=== PATIENT | male | born 1955 | race Two or more races ===

== ENCOUNTER 2021-01-02 10:59 | Inpatient (IN) | payer MEDICARE, MEDICAID ==
[~2021-01-02] VITALS: Ht 172.7 cm; Wt 122.0 kg
--- NOTE | 2021-01-02 11:00 | NUR ---
CAME TO ER COMPLAINTS OF RIGHT LEG SWELLING AND PAIN FROM USP
[2021-01-02] MEDS ORDERED: Morphine Sulfate 4mg/ml Inj (IV USE ONLY) IVP ONE (12:00)
[2021-01-02] MEDS ORDERED: Piperacillin/Tazobactam 3.375 GM in NS 110 ML IVPB ONE (12:00)
[2021-01-02 12:06] VITALS: BP 102/47
[2021-01-02 12:20] LABS: ANION GAP 4 mmol/L (5-15); BLOOD UREA NITROGEN 17 mg/dL (7-18); CALCIUM 9.1 MG/DL (8.5-10.1); CARBON DIOXIDE 35 MMOL/L (21-32); CHLORIDE 100 MMOL/L (98-107); POTASSIUM 4.4 MMOL/L (3.5-5.1); SODIUM 139 MMOL/L (136-145)
[2021-01-02 12:25] LABS: ALANINE AMINOTRANSFERASE 22 U/L (12-78); ALBUMIN/GLOBULIN RATIO 0.7 (1.0-2.7); ALKALINE PHOSPHATASE 79 U/L (46-116); ASPARTATE AMINO TRANSFERASE 17 U/L (15-37); BILIRUBIN,TOTAL 0.2 MG/DL (0.2-1.0)
[2021-01-02 12:30] LABS: BASOPHILS % (AUTO) 0.7 % (0.0-2.0); EOSINOPHILS % (AUTO) 1.3 % (0.0-3.0); HEMATOCRIT 39.2 % (42.0-52.0); HEMOGLOBIN 12.5 G/DL (14.2-18.0); LYMPHOCYTES % (AUTO) 20.8 % (20.0-45.0); MEAN CORPUSCULAR VOLUME 84 FL (80-99); MONOCYTES % (AUTO) 11.8 % (1.0-10.0); NEUTROPHILS % (AUTO) 65.5 % (45.0-75.0); PLATELET COUNT 299 K/UL (150-450); RED BLOOD COUNT 4.67 M/UL (4.70-6.10); RED CELL DISTRIBUTION WIDTH 14.7 % (11.6-14.8); WHITE BLOOD COUNT 8.3 K/UL (4.8-10.8)
[2021-01-02] MEDS ORDERED: HYDROmorphone 1mg/ml Carpuject IVP ONE ×2 (12:45→15:00)
--- NOTE | 2021-01-02 12:50 | NUR ---
ADMIT TO HOSPITAL FOR OBSERVATION
[2021-01-02 13:00] VITALS: BP 113/68
[2021-01-02] MEDS ORDERED: Sodium Chloride 3,400 ML IVLG ONE (13:15)
[2021-01-02] MEDS ORDERED: DIOVAN HCT 80MG1 TAB ORAL (13:26)
[2021-01-02] MEDS ORDERED: ACETAMINOPHEN325 M1 ORAL (13:26)
[2021-01-02] MEDS ORDERED: VITAMIN D325 MC1 PO (13:26)
[2021-01-02] MEDS ORDERED: ZYPREXA10 MG ORAL (13:26)
[2021-01-02] MEDS ORDERED: XARELTO10 MG ORAL (13:26)
[2021-01-02] MEDS ORDERED: NORVASC5 MG ORAL (13:26)
--- NOTE | 2021-01-02 13:53 | Consultation ---
History of Present Illness General Date patient seen: Jan 02, 2021 Reason for Hospitalization: General Complaint Present Illness HPI This is a 65-year-old male multimedical comorbidities with history of lower extremity edema cellulitis wounds presented to [facility] with b ilateral lower extremity cellulitis worsening. States he noticed some redness edema recently that has been worsening specially on the right greater than left. On evaluation identified to have open wounds erythema cellulitis no abscess. Surgery called to eval and assist with care patient seen emergency room and chart reviewed patient care plan initiated. Allergies: Coded Allergies: Dust (Verified Allergy, Severe, Severe coughing, 01/02/21) GRASS POLLEN (Verified Allergy, Severe, Severe coughing, 01/02/21) GARCIA (Verified Allergy, Intermediate, Coughing, 01/02/21) Anything garden related TREE AND SHRUB POLLEN (Verified Allergy, Intermediate, Coughing, 01/02/21) Severe coughing COVID-19 Screening Contact w/high risk pt: No Experienced COVID-19 symptoms?: No Medication History Scheduled Amlodipine Besylate (Norvasc), 5 MG ORAL DAILY, (Reported) Cholecalciferol (Vitamin D3) (Vitamin D3*), 5,000 UNITS PO DAILY, (Reported) Olanzapine* (Zyprexa*), 10 MG ORAL DAILY, (Reported) Rivaroxaban (Xarelto*), 20 MG ORAL DAILY, (Reported) Valsartan (Diovan), 1 TAB ORAL DAILY, (Reported) Scheduled PRN Acetaminophen* (Acetaminophen 325MG Tablet*), 650 MG ORAL Q4H PRN for Pain Scale (3-5), (Reported) Patient History Limited by: medical condition History Provided By: Medical Record, PMD Healthcare decision maker Resuscitation status Advanced Directive on File Review of Systems Review of Symptoms -O-o-f-e-r-a-l- -R-O-S-:- -n-o- -b-r-s-g--h-t- -l-o-s-s- -o-r- -f-e-v-e-r- -J-t-n-m-z-w-h-c-v-i-c-a-l- -R-O-S-:- -n-o- -h-p-y-x-y-n-s-i-o-n- -o-r- -m-o-o-d- -s-s-r-n-g-e-s-,- -n-o- -h-l-l-o-r-y- -l-o-s-s- -Y-d-t-t-h--a-l-m-i-c- -R-O-S-:- -n-o- -h-f-w-u-a-l- -i-t-w-n-g-e-s- -o-r- -e-y-e- -q-t-k-n-u-w-t-i-o-n- -E-N-T- -R-O-S-:- -n-o- -n-a-s-a-l- -o-p-b-o-v-w-t-i-o-n-,- -g-p-b-r-i-n-g- -l-o-s--s-,- -x-k-k-u-d-c-e-s-s- -H-g-n-e-r-g-y- -a-n-d- -O-z-p-o-l-l-l-o-g-y- -R-O-S-:- -n-o- -h-r-v-e-r-g-i-c- -x-m-l-p-t-o-m-s- -o-r- -t-z-x-j-l-t-r-i-a- -I-o-o-i-m-e-v-v-s-i-c-a--l- -a-n-d- -E-m-g-m-n-k-t-i-c- -R-O-S-:- -n-o- -v-l-z-l-l-e-n- -m-z-w-n-d-s-,- -u-i-f-s-u-a-l- -o-a-e-e-d-i-n-g- -o-r- -y-s-i-i-s-i-n-g- -H-l-g-z-o-t-i-n-e- -R-O-S-:- -n-o- -p--k-r-j-u-r-i-a-,- -a-l-v-w-b-c-p-s-i-a-,- -k-q-i-g-h-t- -k-y-c-n-g-e-s-,- -l-y-h-r-h-v-a-t-u-r-e- -u-a-r-a-t-g-r-a-n-c-e- -W-k-x-d-s-u-a-t-o-r-y- -R-O-S-:- -n-o- -c-o-u-g-h-,- -u-p-a-s-d-z-e-s-s- -o-f- -n-o-c-a-t-h-,- -o-r- -d-t-b-e-z-i-n-g- -V-w-c-v-b-b-u-x-e-c-u-l-a-r- -R-O-S-:- -n-o- -c-h-e-s-t- -p-a-i-n- -o-r- -f-i-w-p-n-e-a- -o-n- -p-x-g-r-t-i-o-n- -E-v-x-e-m-z-v-h-c-e--v-v-n-n-a-l- -R-O-S-:- -b-r-y-i-e-s- -o-i-v-k-o-z-n-a-l- -p-a-i-n-,- -y-y-p-g-h-t- -r-e-d- -b-l-o-o-d- -i-n- -s-t-o-o-l-.- -U-t-b-w-z-h-r-w-y-d-i-l-t-a-l- -R-O-S-:- -n-o- -m-y--j-q-x-i-a-s- -o-r- -e-a-i-c-b-m-l-g-i-a-s- -A-k-k-n-t-o-m-i-j-c-a-l- -R-O-S-:- -n-o- -T-I-A- -o-r- -x-t-d-o-k-e- -e-x-d-p-t-o-m-s- -E-u-f-l-r-b-o-u-d-g-i-c-a-l- -R-O-S-:- -n-o- -n-e-w- -o-r- -q-p-h-n-g-i-n-g- -s-k-i-n- -l-w-i-i-o-n-s-,- -b-v-r-h-e-s- -o-r- -l-r-z-r-i-t-i-s- limited Physical Exam Physical Exam General appearance: alert, cooperative, no distress, appears stated age Head: Normocephalic, without obvious abnormality, atraumatic Eyes: conjunctivae/corneas clear. PERRL, EOM's intact. Fundi benign Throat: Lips, mucosa, and tongue normal. Teeth and gums normal Neck: supple, symmetrical, trachea midline, no adenopathy, thyroid: not enlarged, symmetric, no tenderness/mass/nodules, no carotid bruit and no JVD Lungs: clear to auscultation bilaterally Heart: regular rate and rhythm, S1, S2 normal, no murmur, click, rub or gallop Abdomen: soft, non-tender. Bowel sounds normal. No masses, no organomegaly Extremities: extremities+ edema Pulses: 2+ and symmetric Skin: Skin color, texture, turgor normal. No rashes or lesions Neurologic: Grossly normal Last 24 Hour Vital Signs Date Time Temp Pulse Resp B/P (MAP) Pulse Ox O2 Delivery O2 Flow Rate FiO2 01/02/21 13:00 62 18 113/68 100 Room Air 01/02/21 12:54 98.2 01/02/21 12:32 98.2 01/02/21 12:06 62 18 Nasal Cannula 3.0 99 01/02/21 12:06 62 18 102/47 100 Nasal Cannula 3.0 01/02/21 11:14 98.2 72 18 130/80 (97) 99 Room Air Laboratory Tests Test 01/02/21 11:50 White Blood Count 8.3 K/UL (4.8-10.8) Red Blood Count 4.67 M/UL (4.70-6.10) L Hemoglobin 12.5 G/DL (14.2-18.0) L Hematocrit 39.2 % (42.0-52.0) L Mean Corpuscular Volume 84 FL (80-99) Mean Corpuscular Hemoglobin 26.8 PG (27.0-31.0) L Mean Corpuscular Hemoglobin Concent 31.8 G/DL (32.0-36.0) L Red Cell Distribution Width 14.7 % (11.6-14.8) Platelet Count 299 K/UL (150-450) Mean Platelet Volume 6.1 FL (6.5-10.1) L Neutrophils (%) (Auto) 65.5 % (45.0-75.0) Lymphocytes (%) (Auto) 20.8 % (20.0-45.0) Monocytes (%) (Auto) 11.8 % (1.0-10.0) H Eosinophils (%) (Auto) 1.3 % (0.0-3.0) Basophils (%) (Auto) 0.7 % (0.0-2.0) Sodium Level 139 MMOL/L (136-145) Potassium Level 4.4 MMOL/L (3.5-5.1) Chloride Level 100 MMOL/L (98-107) Carbon Dioxide Level 35 MMOL/L (21-32) H Anion Gap 4 mmol/L (5-15) L Blood Urea Nitrogen 17 mg/dL (7-18) Creatinine 1.0 MG/DL (0.55-1.30) Estimat Glomerular Filtration Rate > 60 mL/min (>60) Glucose Level 90 MG/DL (74-106) Lactic Acid Level 0.90 mmol/L (0.4-2.0) Calcium Level 9.1 MG/DL (8.5-10.1) Total Bilirubin 0.2 MG/DL (0.2-1.0) Aspartate Amino Transf (AST/SGOT) 17 U/L (15-37) Alanine Aminotransferase (ALT/SGPT) 22 U/L (12-78) Alkaline Phosphatase 79 U/L (46-116) Total Protein 7.3 G/DL (6.4-8.2) Albumin 3.0 G/DL (3.4-5.0) L Globulin 4.3 g/dL Albumin/Globulin Ratio 0.7 (1.0-2.7) L Height (Feet): 5 Height (Inches): 8.00 Weight (Pounds): 250 Medications Current Medications Medications (Trade) Dose Ordered Sig/Graciela Route PRN Reason Start Time Stop Time Status Last Admin Dose Admin Sodium Chloride 1,000 ml @ 999 mls/hr Q1H1M ONCE IV 01/02/21 13:45 01/02/21 14:45 Assessment/Plan Problem List: (1) Cellulitis of right lower extremity Assessment & Plan: Pt presented on admission with Edema, Multiple Ulcerations R lower extremity. R Lower extremity is warm, erythematous with presence of Haemosiderin. Pt stated he has Hx. of recurrent Leg ulcerations. Wound zia R Tibia(L)0.8cm x (W)4.5cm. Fibrinous slough at base of wound. Borders are irregular and macerated. Weeping seropurulent exudate . Mild odor noted. Two wounds lateral RLE (L)5cm x (W)7.3cm. (Proximal)Superficial wound with 50% fibrinous slough,50% kenna. Borders are irregular and macerated. Exuding seropurulent exudate. Mild odor noted. (Distally) Lateral/posterior R Tibia (L)6.5cm x (W)7.4cm. Superficial wound with 90% fibrinous slough,10% kenna.Irregular borders that are macerated. Exuding moderate amt malodorous seropurulent exudate. Posterior R Tibia(L)1.2cm x (W)3.6cm. Superficial wound with 50% fibrinous slough,50% kenna. Irregular and macerated borders.Small amt seropurulent exudate. Mild odor noted. Small black nodule noted to posterior upper R thigh. No erythema or changes in skin temp at site. Pt stated he has had nodule for many years. Denied pain at site. Haemosiderin noted to LLE . No edema or ulcerations noted. Both heels are blanchable and firm. Tx.plan: Cleanse wounds R lower extremity with Saline. Apply Silvasorb Gel to each wound. Cover wounds with Maxsorb Extra (calcium Alginate). Cover wounds with ABD Pads. Wrap with Kerlix From Base of Toes to Below Knee. Change Daily and prn. Elevate leg with Pillow. ICD Codes: L03.115 - Cellulitis of right lower limb SNOMED: [id number] NegroPapi Jan 02, 2021 13:53
--- NOTE | 2021-01-02 14:32 | Emergency Room Report ---
History of Present Illness General Chief Complaint: General Complaint Source: Patient, Medical Record, PMD Present Illness HPI 65-year-old male presents for evaluation. Brought in by EMS from custodial facility. Has cellulitis to both legs however states the left leg is healing however the right leg is getting worse over the last several weeks. Pain is throbbing, 10 out of 10, nonradiating. Denies fevers or chills. Denies chest pain or shortness of breath. No other aggravating relieving factors. 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 Patient History Past Medical History: HTN, psych hx Past Surgical History: none Pertinent Family History: none Social History: Denies: smoking, alcohol use, drug use Immunizations: UTD Reviewed Nursing Documentation: PMH: Agreed; PSxH: Agreed Nursing Documentation-PMH Hx Hypertension: Yes History Of Psychiatric Problem: Yes - schizophrenia,depression Review of Systems All Other Systems: negative except mentioned in HPI Physical Exam Vital Signs Date Time Temp Pulse Resp B/P (MAP) Pulse Ox O2 Delivery O2 Flow Rate FiO2 01/02/21 11:14 98.2 72 18 130/80 (97) 99 Room Air 01/02/21 12:06 3.0 01/02/21 12:06 99 Sp02 EP Interpretation: reviewed, normal General Appearance: no apparent distress, alert, GCS 15, non-toxic, obese Head: normocephalic, atraumatic Eyes: bilateral eye normal inspection, bilateral eye PERRL ENT: hearing grossly normal, normal pharynx, no angioedema, normal voice Neck: full range of motion, supple/symm/no masses Respiratory: chest non-tender, lungs clear, normal breath sounds, speaking full sentences Cardiovascular #1: regular rate, rhythm, no edema Cardiovascular #2: 2+ carotid (R), 2+ carotid (L), 2+ radial (R), 2+ radial (L), 2+ dorsalis pedis (R), 2+ dorsalis pedis (L) Gastrointestinal: normal bowel sounds, non tender, soft, non-distended, no guarding, no rebound Rectal: deferred Genitourinary: normal inspection, no CVA tenderness Musculoskeletal: back normal, normal range of motion, gait/station normal, swelling Neurologic: alert, motor strength/tone normal, oriented x3, sensory intact, responsive, speech normal Psychiatric: judgement/insight normal, memory normal, mood/affect normal, no suicidal/homicidal ideation Reflexes: 3+ bicep (R), 3+ bicep (L), 3+ tricep (R), 3+ tricep (L), 3+ knee (R), 3+ knee (L) Skin: other - Diffuse erythema and induration with ulcerations noted to the right lower extremity. Healing cellulitis to the left lower extremity Lymphatic: no adenopathy Medical Decision Making Diagnostic Impression: Primary Impression: Cellulitis of right lower extremity ER Course Hospital Course 65-year-old male presents to ED with redness, swelling to RLE Differential diagnoses include: Cellulitis, abscess, rash. Clinical course Patient placed on stretcher. After initial history and physical I ordered labs, blood Cx, UA, IVFs, pain meds labs reviewed - no leukocytosis, Hb/Hct stable, no electrolyte abnormalities. lactic ok CXR no acute process antibiotics given. Even IV fluids. Wound culture obtained. Case discussed with Dr Corral and he agreed to accept the patient to his service for further care and support Diagnosis - cellulitis of right lower extremity Patient admitted to floor in serious condition Laboratory Tests Test 01/02/21 11:50 White Blood Count 8.3 K/UL (4.8-10.8) Red Blood Count 4.67 M/UL (4.70-6.10) L Hemoglobin 12.5 G/DL (14.2-18.0) L Hematocrit 39.2 % (42.0-52.0) L Mean Corpuscular Volume 84 FL (80-99) Mean Corpuscular Hemoglobin 26.8 PG (27.0-31.0) L Mean Corpuscular Hemoglobin Concent 31.8 G/DL (32.0-36.0) L Red Cell Distribution Width 14.7 % (11.6-14.8) Platelet Count 299 K/UL (150-450) Mean Platelet Volume 6.1 FL (6.5-10.1) L Neutrophils (%) (Auto) 65.5 % (45.0-75.0) Lymphocytes (%) (Auto) 20.8 % (20.0-45.0) Monocytes (%) (Auto) 11.8 % (1.0-10.0) H Eosinophils (%) (Auto) 1.3 % (0.0-3.0) Basophils (%) (Auto) 0.7 % (0.0-2.0) Sodium Level 139 MMOL/L (136-145) Potassium Level 4.4 MMOL/L (3.5-5.1) Chloride Level 100 MMOL/L (98-107) Carbon Dioxide Level 35 MMOL/L (21-32) H Anion Gap 4 mmol/L (5-15) L Blood Urea Nitrogen 17 mg/dL (7-18) Creatinine 1.0 MG/DL (0.55-1.30) Estimat Glomerular Filtration Rate > 60 mL/min (>60) Glucose Level 90 MG/DL (74-106) Lactic Acid Level 0.90 mmol/L (0.4-2.0) Calcium Level 9.1 MG/DL (8.5-10.1) Total Bilirubin 0.2 MG/DL (0.2-1.0) Aspartate Amino Transf (AST/SGOT) 17 U/L (15-37) Alanine Aminotransferase (ALT/SGPT) 22 U/L (12-78) Alkaline Phosphatase 79 U/L (46-116) Total Protein 7.3 G/DL (6.4-8.2) Albumin 3.0 G/DL (3.4-5.0) L Globulin 4.3 g/dL Albumin/Globulin Ratio 0.7 (1.0-2.7) L Chest X-Ray Diagnostic Results Chest X-Ray Diagnostic Results : Chest X-Ray Ordered: Yes # of Views/Limited/Complete: 1 View Indication: Other EP Interpretation: Yes Interpretation: no consolidation, no effusion, no pneumothorax, no acute cardiopulmonary disease Impression: No acute disease Electronically Signed by: Electronically signed by Juan Francisco Swift MD Last Vital Signs Date Time Temp Pulse Resp B/P (MAP) Pulse Ox O2 Delivery O2 Flow Rate FiO2 01/02/21 13:00 62 18 113/68 100 Room Air 01/02/21 12:54 98.2 01/02/21 12:06 3.0 99 Status: improved Disposition: ADMITTED INPATIENT Condition: Serious Referrals: Juan Carlos Corral MD (PCP) Juan Francisco Swift MD Jan 02, 2021 14:32
[2021-01-02 15:49] VITALS: BP 114/69
--- NOTE | 2021-01-02 15:50 | NUR ---
REPORT GIVEN TO RN PATIENT IS TO BE TRANSFERD TO ROOM 412-[address] [facility]
--- NOTE | 2021-01-02 15:51 | NUR ---
NURSE NOTES: Report received from YVETTE Vargas in the ED via telephone, awaiting for patient arrival on 4E 412-1.
[2021-01-02 16:00] VITALS: BP 145/63
--- NOTE | 2021-01-02 16:10 | NUR ---
NURSE NOTES: Patient brought up to the floor.
--- NOTE | 2021-01-02 16:15 | NUR ---
NURSE NOTES: Called and left a voicemail for Dr. Nieves on answering service for admission orders.
--- NOTE | 2021-01-02 17:00 | NUR ---
NURSE NOTES: Dr. Nieves did not finish giving orders via telephone. Called back Dr. Nieves and no answer.
--- NOTE | 2021-01-02 18:03 | NUR ---
NURSE NOTES:WOUND CARE NOTES:Pt presented on admission with Edema, Multiple Ulcerations R lower extremity. R Lower extremity is warm, erythematous with presence of Haemosiderin. Pt stated he has Hx. of recurrent Leg ulcerations. Wound zia R Tibia(L)0.8cm x (W)4.5cm. Fibrinous slough at base of wound. Borders are irregular and macerated. Weeping seropurulent exudate . Mild odor noted. Two wounds lateral RLE (L)5cm x (W)7.3cm. (Proximal)Superficial wound with 50% fibrinous slough,50% kenna. Borders are irregular and macerated. Exuding seropurulent exudate. Mild odor noted. (Distally) Lateral/posterior R Tibia (L)6.5cm x (W)7.4cm. Superficial wound with 90% fibrinous slough,10% kenna.Irregular borders that are macerated. Exuding moderate amt malodorous seropurulent exudate. Posterior R Tibia(L)1.2cm x (W)3.6cm. Superficial wound with 50% fibrinous slough,50% kenna. Irregular and macerated borders.Small amt seropurulent exudate. Mild odor noted. Small black nodule noted to posterior upper R thigh. No erythema or changes in skin temp at site. Pt stated he has had nodule for many years. Denied pain at site. Haemosiderin noted to LLE . No edema or ulcerations noted. Both heels are blanchable and firm. Tx.plan: Cleanse wounds R lower extremity with Saline. Apply Silvasorb Gel to each wound. Cover wounds with Maxsorb Extra (calcium Alginate). Cover wounds with ABD Pads. Wrap with Kerlix From Base of Toes to Below Knee. Change Daily and prn. Elevate leg with Pillow.
--- NOTE | 2021-01-02 18:14 | NUR ---
NURSE NOTES: Called Dr. Nieves for orders but no answer.
--- NOTE | 2021-01-02 18:26 | Diagnostic Imaging Report ---
Indication: Shortness of breath Technique: One view of the chest Comparison: none Findings: Lungs and pleural spaces are clear. Heart size is normal. Impression: No acute process
--- NOTE | 2021-01-02 19:00 | NUR ---
NURSE HAND-OFF: Important Events on Shift: full code, stable condition, admission orders need to be continued Patient Status: full code, no acute distress noted, on nasal cannula, v/s WNL Diet: regular Pending Orders: [] Pending Results/Labs:[] Pending MD notification:[] Latest Vital Signs: Temperature 97.3 , Pulse 65 , B/P 145 /63 , Respiratory Rate 19 , O2 SAT 95 , Room Air, O2 Flow Rate 2.0 . Vital Sign Comment: [] Latest Liu Fall Score: 45 Fall Risk: High Risk Safety Measures: Call light Within Reach, Bed Alarm Zone 2, Side Rails Side Rails x2, Bed position Low and Locked. Fall Precautions: Yellow Socks Yellow Gown Door Sign Patient Fall Education Report given to Abram Ladd RN made aware of need to complete admission orders..
--- NOTE | 2021-01-02 19:15 | NUR ---
NURSE NOTES: received pt and report from YVETTE Morgan. pt alert and oriented x 4 with no acute s/s of distress and no co pain at the moment. IV site clean dry and intact. Dressing on right foot clean dry and intact. Plan of care discussed.
[2021-01-02 20:00] VITALS: BP 119/65
[2021-01-02] MEDS: HYDROmorphone 1mg/ml Carpuject IVP SCH (21:59)
[2021-01-03] VITALS (7 sets, daily range): BP systolic 136–170; BP diastolic 58–80
--- NOTE | 2021-01-03 00:10 | NUR ---
NURSE NOTES: vital signs stable at this time, no acute s/s of distress observed. no co pain currently. Pt is asleep. no co SOB or difficulty breathing.
--- NOTE | 2021-01-03 01:59 | History and Physical Report ---
DATE OF ADMISSION: 01/02/2021 This is one of several admissions to [facility] of this 65-year-old patient, this time for right lower lobe cellulitis. HISTORY OF PRESENT ILLNESS: Patient is a resident of an extended care facility where he has been in stable condition for the last several months. He is known to have several chronic medical syndromes, but has been stable on his current medications. The right lower extremity for the last year has been for multiple treatment. His erythematous dermatitis is intermittently painful and swollen due to venous and capillary leak. More than 6 months ago, he was admitted to [facility] for similar reason for treatment of cellulitis. However, his condition deteriorated in the last several days. He was transferred to [facility] ER and was admitted. PAST MEDICAL HISTORY: Denies any surgical antecedent. Medically, patient has multiple chronic syndromes. He has morbid obesity with weight that was on admission to the [facility] more than 300 pounds. He has high blood pressure for the last 5 years. He has hyperlipidemia for the last 5 years. for the last 5 years. He has chronic psychosis for more than 20 years. He has mood disorder for which he was admitted for suicide attempt. He has severe osteoarthritis of the right knee and the left hip. It was determined long time ago that he needed total joint replacement however because of his weight, surgery was delayed. ALLERGIES: Pollen. MEDICATIONS: Patient is on Xarelto 20 mg daily, olanzapine 10 mg daily, amlodipine 5 mg daily, MS Contin 50 mg t.i.d. He was on vitamin D 5000 daily. He was on atorvastatin 10 mg daily, Protonix 40 mg daily. FAMILY HISTORY: Noncontributory. SOCIAL HISTORY: He is single. He was born in [place]. Has been on SSI for many years. 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 HABITS: Patient smoked 1 pack a day for more than 20 years; however, he discontinued 20 years ago. He denies drinking and denies use of illicit drugs. REVIEW OF SYSTEMS: CARDIOVASCULAR: Patient denies any chest pain, shortness of breath, palpitations, or dizziness. PULMONARY: Patient denied any cough, wheezing, or expectoration. GASTROINTESTINAL: His appetite is moderate. His weight is stable. He has no dysphagia or dyspepsia. No bowel movement disorder. GENITOURINARY: Patient denies any dysuria, frequency, or incontinence. He does have nocturia of 1 to 2. JOINTS: Patient denies any swelling, stiffness, cold extremities, photosensitivity, dry eyes, or alopecia. However, he has severe pain in the left hip and his right knee in which cartilage cannot be visualized despite chest x-ray or CT scan. PHYSICAL EXAMINATION: VITAL SIGNS: Blood pressure 145/78, his pulse is 62, respirations are 18, temperature 98.6. HEENT: Eyes were normal. Pupils were round, equal, and reactive to light. Sclerae were white. Conjunctivae were pink. Extraocular movements were normal. Temporal arteries were palpable bilaterally. There was no bilateral temporal wasting. Visual payan to confrontation were normal and neglect sign was negative. ENT, mucous membranes were not dehydrated. Auditory canals were clear and tympanic membranes could not be visualized. Nasal cavity was not congested. Nasal septum was intact. Soft palate was free of ulcerations. Pharynx was clear from exudate or tonsillar hypertrophy. Uvula doris to phonation. Tongue was moist, midline, and normally papillated. NECK: Supple. There was no goiter. No mass. No lymphadenopathy. There was no JVD. No bruit. Carotid upstroke was 2+. LUNGS: Clear. HEART: PMI was in fourth left intercostal space midclavicular line. There was normal S1 and normal S2. There was no murmur. No arrhythmia. No S3. No S4. No pericardial rub. ABDOMEN: Soft, nontender without organomegaly. There were no masses palpable. Normal bowel sounds without bruit. There was no guarding. No rebound tenderness. No ascites. No hernia. No CVA tenderness. Liver span was 8 cm, mostly nontender. EXTREMITIES: There was no cyanosis, no clubbing, and no edema. Extremities were warm. There was bilateral cellulitis more on the right than on the left on the medial aspect. The erythema was more intense on the lateral side than on the posterior site. Patient have different blisters at different sites. NEUROLOGICAL: Reflexes in biceps, triceps, and brachioradialis were symmetric and equal. Patellas were present. Plantars were in flexion. Cranial nerves II through XII were symmetric and equal. Cerebellar function, there was no tremor. No nystagmus. No extrapyramidal rigidity. Sensory exam to pinprick, cotton touch, position, and motor strength was 5/5 against resistance in upper extremity, but could not be tested in the lower extremity because patient's severe osteoarthritis of the hip and knee. LABORATORY DATA: His hemoglobin 12.5, hematocrit 39.2 with MCV of 84, WBC of 8.3, and platelets of 299. His BUN and creatinine are 17 and 1.0 respectively. His sodium is 139, potassium 4.4, chloride 109, CO2 is 35. His lactic acid was 0.9. His liver function tests are normal. His albumin was 3.0, globulin was 4.0. IMPRESSION: Patient has dermatitis, complex dermatitis of the right lower extremity. Multiple consultants were called to assist in management of this case. Infectious Disease telecommunications consultant, communications consultant, and service desk specialist. The case will be discussed with the general surgeon. Repeat laboratory tests will be done in the a.m. Juan Carlos Corral M.D. DR: ODESSA JOB#: [id number] CC:
[2021-01-03] MEDS: HYDROmorphone 1mg/ml Carpuject IVP SCH ×3 (04:00→15:30)
--- NOTE | 2021-01-03 04:10 | NUR ---
NURSE NOTES: vital signs stable, no acute distress, no co pain now. pt still asleep at the moment. alert and oriented x4 when awake. no co sob or difficulty breathing. O2 saturation at 94.
--- NOTE | 2021-01-03 06:20 | NUR ---
NURSE HAND-OFF: Important Events on Shift:pain management Patient Status: stable Diet: regular Pending Orders: NA Pending Results/Labs:NA Pending MD notification:NA Latest Vital Signs: Temperature 98.5 , Pulse 69 , B/P 145 /63 , Respiratory Rate 18 , O2 SAT 94 , Room Air, O2 Flow Rate 2.0 . Vital Sign Comment: stable through the shift Latest Liu Fall Score: 45 Fall Risk: High Risk Safety Measures: Call light Within Reach, Bed Alarm Zone 2, Side Rails Side Rails x2, Bed position Low and Locked. Fall Precautions: Patient Fall Education Report will be given to YVETTE Goldman.
[2021-01-03 06:36] LABS: BASOPHILS % (AUTO) 0.8 % (0.0-2.0); EOSINOPHILS % (AUTO) 1.3 % (0.0-3.0); HEMATOCRIT 36.4 % (42.0-52.0); HEMOGLOBIN 11.4 G/DL (14.2-18.0); LYMPHOCYTES % (AUTO) 18.6 % (20.0-45.0); MEAN CORPUSCULAR VOLUME 85 FL (80-99); MONOCYTES % (AUTO) 9.6 % (1.0-10.0); NEUTROPHILS % (AUTO) 69.7 % (45.0-75.0); PLATELET COUNT 275 K/UL (150-450); RED BLOOD COUNT 4.26 M/UL (4.70-6.10); RED CELL DISTRIBUTION WIDTH 14.4 % (11.6-14.8)
--- NOTE | 2021-01-03 08:24 | Consultation ---
History of Present Illness General Date patient seen: Jan 03, 2021 Chief Complaint: General Complaint Reason for Consultation: Cellulitis Present Illness HPI Mr. Gracia is a 65 yo male whith PMHx of Obesity, HTN, HLD, OA and psych disorder who presented to the ED on 01/02/21 with b/l foot erythema and swelling. He reports no fevers, chill, cough, SOB, N/V/D or abd pain. He had been having probalems with his feet for more then 6 months but they have been acutely worse. ID was consulted for cellulitis PMHx/PSHx Obesity HTN HLD OA SocHx Past cig use No E/D FamHx Not contributory Allergies: Coded Allergies: Dust (Verified Allergy, Severe, Severe coughing, 01/02/21) GRASS POLLEN (Verified Allergy, Severe, Severe coughing, 01/02/21) GARCIA (Verified Allergy, Intermediate, Coughing, 01/02/21) Anything garden related TREE AND SHRUB POLLEN (Verified Allergy, Intermediate, Coughing, 01/02/21) Severe coughing Medication History Scheduled Amlodipine Besylate (Norvasc), 5 MG ORAL DAILY, (Reported) Cholecalciferol (Vitamin D3) (Vitamin D3*), 5,000 UNITS PO DAILY, (Reported) Olanzapine* (Zyprexa*), 10 MG ORAL DAILY, (Reported) Rivaroxaban (Xarelto*), 20 MG ORAL DAILY, (Reported) Valsartan (Diovan), 1 TAB ORAL DAILY, (Reported) Scheduled PRN Acetaminophen* (Acetaminophen 325MG Tablet*), 650 MG ORAL Q4H PRN for Pain Scale (3-5), (Reported) Patient History Healthcare decision maker Resuscitation status Advanced Directive on File Review of Systems ROS Narrative 12 point ROS negative excepts as noted in the HPI Physical Exam Last 24 Hour Vital Signs Date Time Temp Pulse Resp B/P (MAP) Pulse Ox O2 Delivery O2 Flow Rate FiO2 01/03/21 04:00 98.5 69 18 145/63 (90) 94 01/03/21 00:00 98.0 72 20 138/58 (84) 94 01/02/21 21:00 Nasal Cannula 2.0 01/02/21 20:00 97.9 68 18 119/65 (83) 96 01/02/21 16:31 Nasal Cannula 2.0 01/02/21 16:00 97.3 65 19 145/63 (90) 95 01/02/21 15:49 67 18 114/69 100 Room Air 01/02/21 15:45 98.2 88 16 120/70 98 Room Air 01/02/21 13:00 62 18 113/68 100 Room Air 01/02/21 12:54 98.2 01/02/21 12:32 98.2 01/02/21 12:06 62 18 Nasal Cannula 3.0 99 01/02/21 12:06 62 18 102/47 100 Nasal Cannula 3.0 01/02/21 11:14 98.2 72 18 130/80 (97) 99 Room Air Intake and Output 01/02/21 01/03/21 19:00 07:00 Intake Total 2 ml Balance 2 ml Intake Oral 2 ml # Voids 3 Laboratory Tests Test 01/02/21 11:50 01/03/21 05:15 White Blood Count 8.3 K/UL (4.8-10.8) 8.0 K/UL (4.8-10.8) Red Blood Count 4.67 M/UL (4.70-6.10) L 4.26 M/UL (4.70-6.10) L Hemoglobin 12.5 G/DL (14.2-18.0) L 11.4 G/DL (14.2-18.0) L Hematocrit 39.2 % (42.0-52.0) L 36.4 % (42.0-52.0) L Mean Corpuscular Volume 84 FL (80-99) 85 FL (80-99) Mean Corpuscular Hemoglobin 26.8 PG (27.0-31.0) L 26.8 PG (27.0-31.0) L Mean Corpuscular Hemoglobin Concent 31.8 G/DL (32.0-36.0) L 31.4 G/DL (32.0-36.0) L Red Cell Distribution Width 14.7 % (11.6-14.8) 14.4 % (11.6-14.8) Platelet Count 299 K/UL (150-450) 275 K/UL (150-450) Mean Platelet Volume 6.1 FL (6.5-10.1) L 6.0 FL (6.5-10.1) L Neutrophils (%) (Auto) 65.5 % (45.0-75.0) 69.7 % (45.0-75.0) Lymphocytes (%) (Auto) 20.8 % (20.0-45.0) 18.6 % (20.0-45.0) L Monocytes (%) (Auto) 11.8 % (1.0-10.0) H 9.6 % (1.0-10.0) Eosinophils (%) (Auto) 1.3 % (0.0-3.0) 1.3 % (0.0-3.0) Basophils (%) (Auto) 0.7 % (0.0-2.0) 0.8 % (0.0-2.0) Sodium Level 139 MMOL/L (136-145) Potassium Level 4.4 MMOL/L (3.5-5.1) Chloride Level 100 MMOL/L (98-107) Carbon Dioxide Level 35 MMOL/L (21-32) H Anion Gap 4 mmol/L (5-15) L Blood Urea Nitrogen 17 mg/dL (7-18) Creatinine 1.0 MG/DL (0.55-1.30) Estimat Glomerular Filtration Rate > 60 mL/min (>60) Glucose Level 90 MG/DL (74-106) Lactic Acid Level 0.90 mmol/L (0.4-2.0) Calcium Level 9.1 MG/DL (8.5-10.1) Total Bilirubin 0.2 MG/DL (0.2-1.0) Aspartate Amino Transf (AST/SGOT) 17 U/L (15-37) Alanine Aminotransferase (ALT/SGPT) 22 U/L (12-78) Alkaline Phosphatase 79 U/L (46-116) Total Protein 7.3 G/DL (6.4-8.2) Albumin 3.0 G/DL (3.4-5.0) L Globulin 4.3 g/dL Albumin/Globulin Ratio 0.7 (1.0-2.7) L Height (Feet): 5 Height (Inches): 8.00 Weight (Pounds): 269 Medications Current Medications Medications (Trade) Dose Ordered Sig/Graciela Route PRN Reason Start Time Stop Time Status Last Admin Dose Admin Acetaminophen (Tylenol) 650 mg Q4H PRN ORAL For Pain 01/02/21 16:30 02/01/21 16:29 01/02/21 20:36 Amlodipine Besylate (Norvasc) 5 mg DAILY ORAL 01/03/21 09:00 02/02/21 08:59 Hydromorphone HCl (Dilaudid) 0.5 mg Q6H IVP 01/02/21 22:00 01/09/21 21:59 01/03/21 04:00 Olanzapine (ZyPREXA) 10 mg DAILY ORAL 01/03/21 09:00 02/17/21 08:59 Rivaroxaban (Xarelto) 20 mg DAILY ORAL 01/03/21 09:00 04/03/21 08:59 Objective Narrative GEN: NAD HEENT: NCAT, MMM, EOMI, No scleral ictersu Neck: Supple, Normal ROM LUNGS: CTAB, No W/C Heart: RRR, S1, S2 Abd: Obese, Soft, NT, + BS Neuro: A/O x 4 Ext B/L edema and erythema R.L some blistering of lower Ext Assessment/Plan Assessment/Plan: 65 yo male whith PMHx of Obesity, HTN, HLD, OA and psych disorder who presented to the ED on 01/02/21 with b/l foot erythema and swelling. Cellulitis R/L Afebrile No leukocytosis Obesity HTN HLD OA PLAN - Start Cliondamycin 450mg PO QID - Monitor cellulitis - elevation of feet. - Monitor CBC and Temps Thank you for this consult. [facility] will continue to follow Mr. Gracia with you during this hospitalization. Sonny Carrasco MD Jan 03, 2021 08:24
[2021-01-03] MEDS: Xarelto 10mg tab ORAL SCH (08:26)
[2021-01-03] MEDS: OLANZapine 10mg tab ORAL SCH (08:26)
[2021-01-03] MEDS: Clindamycin 150mg cap ORAL SCH ×3 (11:29→23:53)
--- NOTE | 2021-01-03 11:56 | Surgery Progress Note ---
Surgery Progress Note Subjective Symptoms: improved, tolerating diet, passing flatus Additional Comments dressings going well leg elevated on abx Objective Last 24 Hour Vital Signs Date Time Temp Pulse Resp B/P (MAP) Pulse Ox O2 Delivery O2 Flow Rate FiO2 01/03/21 09:00 Room Air 01/03/21 08:26 83 139/76 01/03/21 08:00 97.8 83 18 139/76 (97) 93 01/03/21 04:00 98.5 69 18 145/63 (90) 94 01/03/21 00:00 98.0 72 20 138/58 (84) 94 01/02/21 21:00 Nasal Cannula 2.0 01/02/21 20:00 97.9 68 18 119/65 (83) 96 01/02/21 16:31 Nasal Cannula 2.0 01/02/21 16:00 97.3 65 19 145/63 (90) 95 01/02/21 15:49 67 18 114/69 100 Room Air 01/02/21 15:45 98.2 88 16 120/70 98 Room Air 01/02/21 13:00 62 18 113/68 100 Room Air 01/02/21 12:54 98.2 01/02/21 12:32 98.2 01/02/21 12:06 62 18 Nasal Cannula 3.0 99 01/02/21 12:06 62 18 102/47 100 Nasal Cannula 3.0 I&O Intake and Output 01/02/21 01/03/21 19:00 07:00 Intake Total 2 ml Balance 2 ml Intake Oral 2 ml # Voids 3 Dressing: dry Wound: clean Cardiovascular: RSR Respiratory: clear Abdomen: soft, flat, non-tender, present bowel sounds, non-distended Extremities: edema, tenderness, no cyanosis, pulses, other Laboratory Tests Test 01/03/21 05:15 White Blood Count 8.0 K/UL (4.8-10.8) Red Blood Count 4.26 M/UL (4.70-6.10) L Hemoglobin 11.4 G/DL (14.2-18.0) L Hematocrit 36.4 % (42.0-52.0) L Mean Corpuscular Volume 85 FL (80-99) Mean Corpuscular Hemoglobin 26.8 PG (27.0-31.0) L Mean Corpuscular Hemoglobin Concent 31.4 G/DL (32.0-36.0) L Red Cell Distribution Width 14.4 % (11.6-14.8) Platelet Count 275 K/UL (150-450) Mean Platelet Volume 6.0 FL (6.5-10.1) L Neutrophils (%) (Auto) 69.7 % (45.0-75.0) Lymphocytes (%) (Auto) 18.6 % (20.0-45.0) L Monocytes (%) (Auto) 9.6 % (1.0-10.0) Eosinophils (%) (Auto) 1.3 % (0.0-3.0) Basophils (%) (Auto) 0.8 % (0.0-2.0) Plan Problems: (1) Cellulitis of right lower extremity Assessment & Plan: Pt presented on admission with Edema, Multiple Ulcerations R lower extremity. R Lower extremity is warm, erythematous with presence of Haemosiderin. Pt stated he has Hx. of recurrent Leg ulcerations. Wound zia R Tibia(L)0.8cm x (W)4.5cm. Fibrinous slough at base of wound. Borders are irregular and macerated. Weeping seropurulent exudate . Mild odor noted. Two wounds lateral RLE (L)5cm x (W)7.3cm. (Proximal)Superficial wound with 50% fibrinous slough,50% kenna. Borders are irregular and macerated. Exuding seropurulent exudate. Mild odor noted. (Distally) Lateral/posterior R Tibia (L)6.5cm x (W)7.4cm. Superficial wound with 90% fibrinous slough,10% kenna.Irregular borders that are macerated. Exuding moderate amt malodorous seropurulent exudate. Posterior R Tibia(L)1.2cm x (W)3.6cm. Superficial wound with 50% fibrinous slough,50% kenna. Irregular and macerated borders.Small amt seropurulent exudate. Mild odor noted. Small black nodule noted to posterior upper R thigh. No erythema or changes in skin temp at site. Pt stated he has had nodule for many years. Denied pain at site. Haemosiderin noted to LLE . No edema or ulcerations noted. Both heels are blanchable and firm. Tx.plan: Cleanse wounds R lower extremity with Saline. Apply Silvasorb Gel to each wound. Cover wounds with Maxsorb Extra (calcium Alginate). Cover wounds with ABD Pads. Wrap with Kerlix From Base of Toes to Below Knee. Change Daily and prn. Elevate leg with Pillow. IV ABx diet as tolerated Papi Tom Jan 03, 2021 11:56
[2021-01-03] MEDS ORDERED: NEOSPORIN OINT30 GM TOPIC (16:44)
[2021-01-03] MEDS ORDERED: HYDROCODON-ACE1 EA18 PO (16:44)
[2021-01-03] MEDS ORDERED: FAMOTIDINE20 MG ORAL (16:44)
--- NOTE | 2021-01-03 17:20 | Diagnostic Imaging Report ---
Indication: Bilateral lower extremity pain Technique: Grayscale and duplex images of the bilateral lower extremity veins Comparison: No Findings: Bilaterally, grayscale and duplex images demonstrate no evidence of intraluminal thrombus. Normal phasic Doppler waveforms, demonstrating normal augmentation response and no evidence of valvular insufficiency. Greater saphenous vein(s) are patent. Normal compressibility. The left tibial veins are patent. The right tibial veins are obscured by bandages Impression: Negative for evidence of lower extremity deep venous thrombosis bilaterally Noted inability to visualize the tibial veins on the right
--- NOTE | 2021-01-03 17:20 | Diagnostic Imaging Report ---
Indication: Bilateral leg pain Technique: Grayscale and duplex images of the bilateral lower extremity arteries Comparison: none Findings: On the right, waveforms are biphasic at the common femoral and superficial femoral artery levels. Forms are monophasic but with sharp systolic upstrokes at the popliteal artery level. The tibial arteries could not be accessed due to the presence of bandages On the left, triphasic waveforms are seen at the common femoral, superficial femoral, popliteal artery levels, and biphasic waveforms are seen in the tibial arteries. A focal flow velocity elevation is seen in the left at the posterior tibial artery level proximally. Impression: Incomplete evaluation of the right leg. Evidence of mild suprageniculate stenosis, but the tibial vessels could not be evaluated No evidence of significant arterial insufficiency on the left. Note, however, evidence of a significant stenosis in the posterior tibial artery proximally
[2021-01-03] MEDS ORDERED: COREG6.25 MG ORAL (17:27)
[2021-01-03] MEDS ORDERED: FLOMAX0.4 MG ORAL (17:27)
[2021-01-03] MEDS ORDERED: CLONIDINE HCL0.1 MG PO (17:27)
[2021-01-03] MEDS ORDERED: CYMBALTA20 MG ORAL (17:27)
[2021-01-03] MEDS ORDERED: MULTIVITAMINS1 EAC2 ORAL (17:27)
[2021-01-03] MEDS ORDERED: MORPHINE SULFAT15 M1 PO (17:27)
[2021-01-03] MEDS ORDERED: BENADRYL25 MG ORAL (17:27)
[2021-01-03] MEDS ORDERED: DEPAKOTE250 MG PO (17:27)
[2021-01-03] MEDS ORDERED: KEPPRA500 M4 ORAL (17:27)
--- NOTE | 2021-01-03 18:46 | General Progress Note ---
Subjective Constitutional: Reports: no symptoms HEENT: Reports: no symptoms Cardiovascular: Reports: no symptoms Respiratory: Reports: no symptoms Gastrointestinal/Abdominal: Reports: nausea, vomiting Genitourinary: Reports: no symptoms Neurologic/Psychiatric: Reports: no symptoms Endocrine: Reports: no symptoms Hematologic/Lymphatic: Reports: no symptoms Allergies: Coded Allergies: Dust (Verified Allergy, Severe, Severe coughing, 01/02/21) GRASS POLLEN (Verified Allergy, Severe, Severe coughing, 01/02/21) GARCIA (Verified Allergy, Intermediate, Coughing, 01/02/21) Anything garden related TREE AND SHRUB POLLEN (Verified Allergy, Intermediate, Coughing, 01/02/21) Severe coughing Objective Last 24 Hour Vital Signs Date Time Temp Pulse Resp B/P (MAP) Pulse Ox O2 Delivery O2 Flow Rate FiO2 01/03/21 16:14 99.3 90 147/68 (94) 01/03/21 16:00 99.4 90 20 170/80 (110) 91 01/03/21 12:00 98.8 83 20 148/65 (92) 91 01/03/21 09:00 Room Air 01/03/21 08:26 83 139/76 01/03/21 08:00 97.8 83 18 139/76 (97) 93 01/03/21 04:00 98.5 69 18 145/63 (90) 94 01/03/21 00:00 98.0 72 20 138/58 (84) 94 01/02/21 21:00 Nasal Cannula 2.0 01/02/21 20:00 97.9 68 18 119/65 (83) 96 Intake and Output 01/02/21 01/03/21 19:00 07:00 Intake Total 2 ml Balance 2 ml Intake Oral 2 ml # Voids 3 Laboratory Tests 01/03/21 05:15: White Blood Count 8.0, Red Blood Count 4.26L, Hemoglobin 11.4L, Hematocrit 36.4L , Mean Corpuscular Volume 85, Mean Corpuscular Hemoglobin 26.8L, Mean Corpuscular Hemoglobin Concent 31.4L, Red Cell Distribution Width 14.4, Platelet Count 275, Mean Platelet Volume 6.0L, Neutrophils (%) (Auto) 69.7, Lymphocytes (%) (Auto) 18.6L, Monocytes (%) (Auto) 9.6, Eosinophils (%) (Auto) 1.3, Basophils (%) (Auto) 0.8 Height (Feet): 5 Height (Inches): 8.00 Weight (Pounds): 269 General Appearance: WD/WN, alert, obese Neck: supple Cardiovascular: normal rate, regular rhythm, no gallop/murmur, no JVD Respiratory/Chest: lungs clear, normal breath sounds, no respiratory distress, no accessory muscle use Abdomen: normal bowel sounds, non tender, soft, no organomegaly, no mass Extremities: normal range of motion Assessment/Plan Status Narrative Patient developed today nausea vomiting without diarrhea without abdominal pain that he reacted to Dilaudid Dilaudid was stopped and patient was switched back to MS Contin 15 mg p.o. 3 times daily patient now is n.p.o. with IV D5W half- normal saline at 100 cc/h Protonix 40 mg IV push every 24 hours Zofran 4 mg IV push every 4 hours as needed his wound appears the same I doubt that this is an infectious process this is an inflammatory process for the patient does not have any tachycardia low-grade fever or leukocytosis waiting for the infectious disease to assess the issue no infection will be found patient will be disch arged after clearance from infectious disease Juan Carlos Zhu MD, MD Jan 03, 2021 18:46
--- NOTE | 2021-01-03 18:47 | Discharge Summary ---
Discharge Summary Hospital Course Date of Admission Jan 02, 2021 at 12:25 Date of Discharge Admitting Diagnosis CELLULITIS R LOWER EXTRIMITY HPI Ian Gracia is a 65 year old male who was admitted on Jan 02, 2021 at 12:25 for Cellulitis Right Lower Extremity Discharge Discharge Vital Signs Last Vital Signs Date Time Temp Pulse Resp B/P (MAP) Pulse Ox O2 Delivery O2 Flow Rate FiO2 01/03/21 16:14 99.3 90 147/68 (94) 01/03/21 16:00 20 91 01/03/21 09:00 Room Air 01/02/21 21:00 2.0 01/02/21 12:06 99 Discharge Disposition Patient was discharged to Juan Carlos Corral MD Jan 03, 2021 18:47
--- NOTE | 2021-01-03 19:45 | NUR ---
NURSE HAND-OFF: Important Events on Shift: Pt vomited x 2; c/o pain in RLE even after scheduled Dilaudid; contacted MD several times regarding pain meds, anticonvulsive meds, and anti-emetic w/o success before MD rounded on pt at end of shift. Patient Status: Stable Diet: NPO Pending Orders: None Pending Results/Labs: None Pending MD notification: None Latest Vital Signs: Temperature 99.3 , Pulse 90 , B/P 147 /68 , Respiratory Rate 20 , O2 SAT 91 , Room Air, O2 Flow Rate 2.0 Vital Sign Comment: Stable Latest Liu Fall Score: 45 Fall Risk: High Risk Safety Measures: Call light Within Reach, Bed Alarm Zone 2, Side Rails Side Rails x2, Bed position Low and Locked. Fall Precautions: Patient Fall Education Report given to YVETTE [place].
--- NOTE | 2021-01-03 19:46 | NUR ---
NURSE NOTES: Received patient in no apparent distress. A&OX4. IV site patent and intact. Bed in lowest position. Call light within reach. Will continue to monitor.
[2021-01-03] MEDS ORDERED: D5 1/2NS w/KCL 10meq 1,000 ML IV SCH (20:00)
[2021-01-03] MEDS: Carvedilol 6.25mg Tab ORAL SCH (21:23)
[2021-01-03] MEDS: D5 1/2NS 1,000 ML IV SCH (21:23)
[2021-01-03] MEDS: Tamsulosin 0.4mg cap ORAL SCH (21:23)
[2021-01-03] MEDS: MS Contin 15mg tab ORAL PRN (21:24)
[2021-01-04] VITALS: BP 143/80
[2021-01-04] MEDS: HYDROcodone/Acetamin 5/325 tab ORAL PRN ×2 (01:48→10:48)
[2021-01-04 04:00] VITALS: BP 153/80
[2021-01-04] MEDS: Clindamycin 150mg cap ORAL SCH ×3 (05:37→18:32)
[2021-01-04] MEDS: D5 1/2NS 1,000 ML IV SCH ×2 (05:37→17:04)
[2021-01-04] MEDS: MS Contin 15mg tab ORAL PRN ×2 (05:38→16:27)
[2021-01-04 06:32] LABS: ANION GAP 5 mmol/L (5-15); BLOOD UREA NITROGEN 14 mg/dL (7-18); CALCIUM 8.7 MG/DL (8.5-10.1); CARBON DIOXIDE 33 MMOL/L (21-32); CHLORIDE 100 MMOL/L (98-107); CREATININE 0.9 MG/DL (0.55-1.30); POTASSIUM 3.8 MMOL/L (3.5-5.1); SODIUM 138 MMOL/L (136-145)
[2021-01-04 06:41] LABS: BASOPHILS % (AUTO) 0.4 % (0.0-2.0); EOSINOPHILS % (AUTO) 0.1 % (0.0-3.0); HEMATOCRIT 36.9 % (42.0-52.0); LYMPHOCYTES % (AUTO) 12.9 % (20.0-45.0); MEAN CORPUSCULAR VOLUME 84 FL (80-99); MONOCYTES % (AUTO) 6.1 % (1.0-10.0); NEUTROPHILS % (AUTO) 80.6 % (45.0-75.0); PLATELET COUNT 274 K/UL (150-450); RED BLOOD COUNT 4.41 M/UL (4.70-6.10); RED CELL DISTRIBUTION WIDTH 14.2 % (11.6-14.8); WHITE BLOOD COUNT 9.5 K/UL (4.8-10.8)
--- NOTE | 2021-01-04 06:55 | Consultation ---
History of Present Illness General Chief Complaint: General Complaint Reason for Consultation: Cellulitis Present Illness Allergies: Coded Allergies: Dust (Verified Allergy, Severe, Severe coughing, 01/02/21) GRASS POLLEN (Verified Allergy, Severe, Severe coughing, 01/02/21) GARCIA (Verified Allergy, Intermediate, Coughing, 01/02/21) Anything garden related TREE AND SHRUB POLLEN (Verified Allergy, Intermediate, Coughing, 01/02/21) Severe coughing Medication History Scheduled Amlodipine Besylate (Norvasc), 5 MG ORAL DAILY, (Reported) Carvedilol (Coreg), 6.25 MG ORAL EVERY 12 HOURS, (Reported) Carvedilol (Coreg), 6.25 MG ORAL EVERY 12 HOURS, (Reported) Cholecalciferol (Vitamin D3) (Vitamin D3*), 5,000 UNITS PO DAILY, (Reported) Clonidine Hcl (Clonidine Hcl), 0.1 MG PO Q8HR, (Reported) Divalproex Sodium* (Depakote*), 250 MG PO HS, (Reported) Duloxetine (Cymbalta), 30 MG ORAL DAILY, (Reported) Famotidine* (Pepcid 20mg tablet*), 20 MG ORAL DAILY, (Reported) Levetiracetam (Keppra), 500 MG ORAL EVERY 12 HOURS, (Reported) Morphine Sulfate (Morphine Sulfate Er), 15 MG PO Q8HR, (Reported) Multivitamins* (Multivitamins*), 1 TAB ORAL DAILY, (Reported) Neomycin/Polymyxin/Bacitracin* (Triple Antibiotic Ointment*), 30 GM TOPIC DAILY, (Reported) Olanzapine* (Zyprexa*), 10 MG ORAL DAILY, (Reported) Rivaroxaban (Xarelto*), 20 MG ORAL DAILY, (Reported) Tamsulosin HCl (Flomax), 0.4 MG ORAL HS, (Reported) Valsartan (Diovan), 1 TAB ORAL DAILY, (Reported) Scheduled PRN Acetaminophen* (Acetaminophen 325MG Tablet*), 650 MG ORAL Q4H PRN for Pain Scale (3-5), (Reported) Diphenhydramine Hcl* (Benadryl*), 25 MG ORAL Q8HR PRN for Itching, (Reported) Hydrocodone Bit/Acetaminophen (Hydrocodon-Acetaminophen 5-300), 1 EACH PO Q8HR PRN for severe pain, (Reported) Patient History Healthcare decision maker Resuscitation status Advanced Directive on File Physical Exam Last 24 Hour Vital Signs Date Time Temp Pulse Resp B/P (MAP) Pulse Ox O2 Delivery O2 Flow Rate FiO2 01/04/21 04:00 98.5 74 20 153/80 (104) 93 01/04/21 00:00 99.0 81 20 143/80 (101) 94 01/03/21 21:23 88 136/72 01/03/21 21:00 Room Air 01/03/21 20:00 99.8 88 20 136/72 (93) 93 01/03/21 16:14 99.3 90 147/68 (94) 01/03/21 16:00 99.4 90 20 170/80 (110) 91 01/03/21 12:00 98.8 83 20 148/65 (92) 91 01/03/21 09:00 Room Air 01/03/21 08:26 83 139/76 01/03/21 08:00 97.8 83 18 139/76 (97) 93 Intake and Output 01/03/21 01/04/21 19:00 07:00 Intake Total 730 ml 900 ml Output Total 1550 ml Balance -820 ml 900 ml Intake Oral 730 ml IV Total 900 ml Output Urine Total 1550 ml # Bowel Movements 2 Laboratory Tests Test 01/04/21 05:20 White Blood Count 9.5 K/UL (4.8-10.8) Red Blood Count 4.41 M/UL (4.70-6.10) L Hemoglobin 12.0 G/DL (14.2-18.0) L Hematocrit 36.9 % (42.0-52.0) L Mean Corpuscular Volume 84 FL (80-99) Mean Corpuscular Hemoglobin 27.1 PG (27.0-31.0) Mean Corpuscular Hemoglobin Concent 32.4 G/DL (32.0-36.0) Red Cell Distribution Width 14.2 % (11.6-14.8) Platelet Count 274 K/UL (150-450) Mean Platelet Volume 5.8 FL (6.5-10.1) L Neutrophils (%) (Auto) 80.6 % (45.0-75.0) H Lymphocytes (%) (Auto) 12.9 % (20.0-45.0) L Monocytes (%) (Auto) 6.1 % (1.0-10.0) Eosinophils (%) (Auto) 0.1 % (0.0-3.0) Basophils (%) (Auto) 0.4 % (0.0-2.0) Sodium Level 138 MMOL/L (136-145) Potassium Level 3.8 MMOL/L (3.5-5.1) Chloride Level 100 MMOL/L (98-107) Carbon Dioxide Level 33 MMOL/L (21-32) H Anion Gap 5 mmol/L (5-15) Blood Urea Nitrogen 14 mg/dL (7-18) Creatinine 0.9 MG/DL (0.55-1.30) Estimat Glomerular Filtration Rate > 60 mL/min (>60) Glucose Level 123 MG/DL (74-106) H Calcium Level 8.7 MG/DL (8.5-10.1) Height (Feet): 5 Height (Inches): 8.00 Weight (Pounds): 269 Medications Current Medications Medications (Trade) Dose Ordered Sig/Graciela Route PRN Reason Start Time Stop Time Status Last Admin Dose Admin Acetaminophen (Tylenol) 650 mg Q4H PRN ORAL For Pain 01/02/21 16:30 02/01/21 16:29 01/02/21 20:36 Acetaminophen/ Hydrocodone Bitart (Reading 5/325) 1 tab Q8H PRN ORAL for moderate pain 01/03/21 19:00 01/10/21 18:59 01/04/21 01:48 Amlodipine Besylate (Norvasc) 5 mg DAILY ORAL 01/03/21 09:00 02/02/21 08:59 01/03/21 08:26 Carvedilol (Coreg) 6.25 mg EVERY 12 HOURS ORAL 01/03/21 21:00 02/02/21 20:59 01/03/21 21:23 Clindamycin HCl (Cleocin) 450 mg EVERY 6 HOURS ORAL 01/03/21 12:00 01/10/21 11:59 01/04/21 05:37 Clonidine HCl (Catapres Tab) 0.1 mg Q8HR PRN ORAL SBP>160 01/03/21 19:00 04/03/21 18:59 Dextrose/Sodium Chloride 1,000 ml @ 100 mls/hr Q10H IV 01/03/21 20:00 02/02/21 19:59 01/04/21 05:37 Diphenhydramine HCl (Benadryl) 25 mg Q8HR PRN ORAL Itching 01/03/21 19:00 02/02/21 18:59 Divalproex Sodium (Depakote) 250 mg BEDTIME ORAL 01/03/21 21:00 02/02/21 20:59 01/03/21 21:24 Duloxetine HCl (Cymbalta) 30 mg DAILY ORAL 01/04/21 09:00 04/04/21 08:59 Famotidine (Pepcid) 20 mg DAILY ORAL 01/04/21 09:00 04/04/21 08:59 Irbesartan (Avapro) 75 mg DAILY ORAL 01/04/21 09:00 02/03/21 08:59 Levetiracetam (Keppra) 500 mg Q12HR ORAL 01/03/21 21:00 02/02/21 20:59 01/03/21 21:23 Morphine Sulfate (MS Contin) 15 mg Q8H PRN ORAL for severe pain 01/03/21 20:00 01/10/21 19:59 01/04/21 05:38 Multivitamins (Multivitamins) 1 tab DAILY ORAL 01/04/21 09:00 02/03/21 08:59 Olanzapine (ZyPREXA) 10 mg DAILY ORAL 01/03/21 09:00 02/17/21 08:59 01/03/21 08:26 Ondansetron HCl (Zofran) 4 mg Q4H PRN IVP Nausea & Vomiting 01/03/21 19:00 02/02/21 18:59 01/04/21 05:38 Pantoprazole (Protonix) 40 mg DAILY IVP 01/04/21 09:00 02/03/21 08:59 Rivaroxaban (Xarelto) 20 mg DAILY ORAL 01/03/21 09:00 04/03/21 08:59 01/03/21 08:26 Tamsulosin HCl (Flomax) 0.4 mg BEDTIME ORAL 01/03/21 21:00 02/02/21 20:59 01/03/21 21:23 Assessment/Plan Assessment/Plan: Hematology consultation REQ MD: Juan Carlos Corral RFC: hypercoag disorder, on xarelto HPI 65-year-old male presents for evaluation. Br[facility] in by [facility] from [facility]. Has cellulitis to both legs however states the left leg is healing however the right leg is getting worse over the last several weeks. Pain is throbbing, 10 out of 10, nonradiating. Denies fevers or chills. Denies chest pain or shortness of breath. No other aggravating relieving factors. Denies any other associated symptoms. Has been started on abx. 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 Patient History Past Medical History: HTN, psych hx Past Surgical History: none Pertinent Family History: none Social History: Denies: smoking, alcohol use, drug use Immunizations: UTD Reviewed Nursing Documentation: PMH: Agreed; PSxH: Agreed Nursing Documentation-PMH Hx Hypertension: Yes History Of Psychiatric Problem: Yes - schizophrenia,depression Review of Systems All Other Systems: negative except mentioned in HPI Physical Exam Vitals: reviewed, normal General: no apparent distress, alert, GCS 15, non-toxic, obese HEENT: hearing grossly normal, normal pharynx, no angioedema, normal voice Neck: full range of motion, supple/symm/no masses Respiratory: chest non-tender, lungs clear, normal breath sounds, speaking full sentences Cardiovascular: regular rate, rhythm, no edema Gi: normal bowel sounds, non tender, soft, non-distended, no guarding, no rebound Rectal: deferred Genitourinary: normal inspection, no CVA tenderness Neurologic: alert, motor strength/tone normal Ext: Healing cellulitis to the left lower extremity Lymphatic: no adenopathy Labs; reviewed Meds; noted A/R # Hypercoagulable disorder -- at this time on xarelto --> continue xarelto at this time --> duplex legs is negative --> monitor for bleed # Anemia due to multifactorial causes --> hgb 12.5 # Cellulitis of right lower extremity --> on abx as per Id --> wound care and id f/u --> improving # Hyperglycemia # Dvt ppx xarelto Appreciate consultation and dw Nayan Styles MD Jan 04, 2021 06:55
--- NOTE | 2021-01-04 07:55 | NUR ---
NURSE HAND-OFF: Important Events on Shift: Patient Status: Diet: NPO Pending Orders: Pending Results/Labs: Pending MD notification: Latest Vital Signs: Temperature 98.5 , Pulse 74 , B/P 153 /80 , Respiratory Rate 20 , O2 SAT 93 , Room Air, O2 Flow Rate 2.0 . Vital Sign Comment: Latest Liu Fall Score: 45 Fall Risk: High Risk Safety Measures: Call light Within Reach, Bed Alarm Zone 1, Side Rails Side Rails x2, Bed position Low and Locked. Fall Precautions: Patient Fall Education Report given to Bebe CRAWFORD.
[2021-01-04 08:00] VITALS: BP 135/61
--- NOTE | 2021-01-04 09:04 | Infectious Diseases Prog Note ---
Assessment/Plan 65 yo male cristiano PMHx of Obesity, HTN, HLD, OA and psych disorder who presented to the ED on 01/02/21 with b/l foot erythema and swelling. Cellulitis with blisters R/L Wound Cx 01/02/21 - S. aureus, GNR Afebrile No leukocytosis Obesity HTN HLD OA PLAN - Continue Clindamycin 450mg PO QID - f/u Cultures - Monitor cellulitis - elevation of feet. - Monitor CBC and Temps Thank you for this consult. [facility] will continue to follow Mr. Gracia with you during this hospitalization. Subjective Allergies: Coded Allergies: Dust (Verified Allergy, Severe, Severe coughing, 01/02/21) GRASS POLLEN (Verified Allergy, Severe, Severe coughing, 01/02/21) GARCIA (Verified Allergy, Intermediate, Coughing, 01/02/21) Anything garden related TREE AND SHRUB POLLEN (Verified Allergy, Intermediate, Coughing, 01/02/21) Severe coughing Afebrile Reports feeling well No Leukocytosis Objective Last 24 Hour Vital Signs Date Time Temp Pulse Resp B/P (MAP) Pulse Ox O2 Delivery O2 Flow Rate FiO2 01/04/21 04:00 98.5 74 20 153/80 (104) 93 01/04/21 00:00 99.0 81 20 143/80 (101) 94 01/03/21 21:23 88 136/72 01/03/21 21:00 Room Air 01/03/21 20:00 99.8 88 20 136/72 (93) 93 01/03/21 16:14 99.3 90 147/68 (94) 01/03/21 16:00 99.4 90 20 170/80 (110) 91 01/03/21 12:00 98.8 83 20 148/65 (92) 91 Height (Feet): 5 Height (Inches): 8.00 Weight (Pounds): 269 GEN: NAD HEENT: NCAT, MMM, EOMI, No scleral ictersu Neck: Supple, Normal ROM LUNGS: CTAB, No W/C Heart: RRR, S1, S2 Abd: Obese, Soft, NT, + BS Neuro: A/O x 4 Ext Left leg edema resolved, Right leg still with edema and erythema and some blistering of lower Ext Microbiology Date/Time Source Procedure Growth Status 01/02/21 12:52 Leg Right Gram Stain - Final Resulted 01/02/21 12:52 Wound Culture - Preliminary Gram Negative Bashir Staphylococcus Aureus Resulted Laboratory Tests Test 01/04/21 05:20 White Blood Count 9.5 K/UL (4.8-10.8) Red Blood Count 4.41 M/UL (4.70-6.10) L Hemoglobin 12.0 G/DL (14.2-18.0) L Hematocrit 36.9 % (42.0-52.0) L Mean Corpuscular Volume 84 FL (80-99) Mean Corpuscular Hemoglobin 27.1 PG (27.0-31.0) Mean Corpuscular Hemoglobin Concent 32.4 G/DL (32.0-36.0) Red Cell Distribution Width 14.2 % (11.6-14.8) Platelet Count 274 K/UL (150-450) Mean Platelet Volume 5.8 FL (6.5-10.1) L Neutrophils (%) (Auto) 80.6 % (45.0-75.0) H Lymphocytes (%) (Auto) 12.9 % (20.0-45.0) L Monocytes (%) (Auto) 6.1 % (1.0-10.0) Eosinophils (%) (Auto) 0.1 % (0.0-3.0) Basophils (%) (Auto) 0.4 % (0.0-2.0) Sodium Level 138 MMOL/L (136-145) Potassium Level 3.8 MMOL/L (3.5-5.1) Chloride Level 100 MMOL/L (98-107) Carbon Dioxide Level 33 MMOL/L (21-32) H Anion Gap 5 mmol/L (5-15) Blood Urea Nitrogen 14 mg/dL (7-18) Creatinine 0.9 MG/DL (0.55-1.30) Estimat Glomerular Filtration Rate > 60 mL/min (>60) Glucose Level 123 MG/DL (74-106) H Calcium Level 8.7 MG/DL (8.5-10.1) Current Medications Medications (Trade) Dose Ordered Sig/Graciela Route PRN Reason Start Time Stop Time Status Last Admin Dose Admin Acetaminophen (Tylenol) 650 mg Q4H PRN ORAL For Pain 01/02/21 16:30 02/01/21 16:29 01/02/21 20:36 Acetaminophen/ Hydrocodone Bitart ([place] 5/325) 1 tab Q8H PRN ORAL for moderate pain 01/03/21 19:00 01/10/21 18:59 01/04/21 01:48 Amlodipine Besylate (Norvasc) 5 mg DAILY ORAL 01/03/21 09:00 02/02/21 08:59 01/03/21 08:26 Carvedilol (Coreg) 6.25 mg EVERY 12 HOURS ORAL 01/03/21 21:00 02/02/21 20:59 01/03/21 21:23 Clindamycin HCl (Cleocin) 450 mg EVERY 6 HOURS ORAL 01/03/21 12:00 01/10/21 11:59 01/04/21 05:37 Clonidine HCl (Catapres Tab) 0.1 mg Q8HR PRN ORAL SBP>160 01/03/21 19:00 04/03/21 18:59 Dextrose/Sodium Chloride 1,000 ml @ 100 mls/hr Q10H IV 01/03/21 20:00 02/02/21 19:59 01/04/21 05:37 Diphenhydramine HCl (Benadryl) 25 mg Q8HR PRN ORAL Itching 01/03/21 19:00 02/02/21 18:59 Divalproex Sodium (Depakote) 250 mg BEDTIME ORAL 01/03/21 21:00 02/02/21 20:59 01/03/21 21:24 Duloxetine HCl (Cymbalta) 30 mg DAILY ORAL 01/04/21 09:00 04/04/21 08:59 Famotidine (Pepcid) 20 mg DAILY ORAL 01/04/21 09:00 04/04/21 08:59 Irbesartan (Avapro) 75 mg DAILY ORAL 01/04/21 09:00 02/03/21 08:59 Levetiracetam (Keppra) 500 mg Q12HR ORAL 01/03/21 21:00 02/02/21 20:59 01/03/21 21:23 Morphine Sulfate (MS Contin) 15 mg Q8H PRN ORAL for severe pain 01/03/21 20:00 01/10/21 19:59 01/04/21 05:38 Multivitamins (Multivitamins) 1 tab DAILY ORAL 01/04/21 09:00 02/03/21 08:59 Olanzapine (ZyPREXA) 10 mg DAILY ORAL 01/03/21 09:00 02/17/21 08:59 01/03/21 08:26 Ondansetron HCl (Zofran) 4 mg Q4H PRN IVP Nausea & Vomiting 01/03/21 19:00 02/02/21 18:59 01/04/21 05:38 Pantoprazole (Protonix) 40 mg DAILY IVP 01/04/21 09:00 02/03/21 08:59 Rivaroxaban (Xarelto) 20 mg DAILY ORAL 01/03/21 09:00 04/03/21 08:59 01/03/21 08:26 Tamsulosin HCl (Flomax) 0.4 mg BEDTIME ORAL 01/03/21 21:00 02/02/21 20:59 01/03/21 21:23 Sonny Carrasco MD Jan 04, 2021 09:03
[2021-01-04 09:28] LABS: INR 1.1 (0.9-1.1)
[2021-01-04] MEDS: Irbesartan 150mg tablet ORAL SCH (10:42)
[2021-01-04] MEDS: Carvedilol 6.25mg Tab ORAL SCH ×2 (10:42→20:50)
[2021-01-04] MEDS: Xarelto 10mg tab ORAL SCH (10:47)
[2021-01-04] MEDS: Pantoprazole Inj IVP SCH (10:49)
[2021-01-04] MEDS: OLANZapine 10mg tab ORAL SCH (10:59)
[2021-01-04 12:00] VITALS: BP 145/69
[2021-01-04] MEDS: DULoxetine 30mg cap ORAL SCH (12:29)
--- NOTE | 2021-01-04 13:33 | Surgery Progress Note ---
Surgery Progress Note Subjective Symptoms: improved, pain same, tolerating diet, voiding well, passing flatus, BM Additional Comments wants to know his pain medication schedule Objective Last 24 Hour Vital Signs Date Time Temp Pulse Resp B/P (MAP) Pulse Ox O2 Delivery O2 Flow Rate FiO2 01/04/21 10:43 68 128/62 01/04/21 10:42 128/62 01/04/21 10:42 68 128/62 01/04/21 09:00 Room Air 01/04/21 08:00 98.5 73 20 135/61 (85) 93 01/04/21 04:00 98.5 74 20 153/80 (104) 93 01/04/21 00:00 99.0 81 20 143/80 (101) 94 01/03/21 21:23 88 136/72 01/03/21 21:00 Room Air 01/03/21 20:00 99.8 88 20 136/72 (93) 93 01/03/21 16:14 99.3 90 147/68 (94) 01/03/21 16:00 99.4 90 20 170/80 (110) 91 I&O Intake and Output 01/03/21 01/04/21 19:00 07:00 Intake Total 730 ml 900 ml Output Total 1550 ml Balance -820 ml 900 ml Intake Oral 730 ml IV Total 900 ml Output Urine Total 1550 ml # Bowel Movements 2 Dressing: dry Wound: clean Cardiovascular: RSR Respiratory: clear Abdomen: soft, flat, non-tender, non-distended Extremities: edema, no tenderness Laboratory Tests Test 01/04/21 05:20 01/04/21 08:45 White Blood Count 9.5 K/UL (4.8-10.8) Red Blood Count 4.41 M/UL (4.70-6.10) L Hemoglobin 12.0 G/DL (14.2-18.0) L Hematocrit 36.9 % (42.0-52.0) L Mean Corpuscular Volume 84 FL (80-99) Mean Corpuscular Hemoglobin 27.1 PG (27.0-31.0) Mean Corpuscular Hemoglobin Concent 32.4 G/DL (32.0-36.0) Red Cell Distribution Width 14.2 % (11.6-14.8) Platelet Count 274 K/UL (150-450) Mean Platelet Volume 5.8 FL (6.5-10.1) L Neutrophils (%) (Auto) 80.6 % (45.0-75.0) H Lymphocytes (%) (Auto) 12.9 % (20.0-45.0) L Monocytes (%) (Auto) 6.1 % (1.0-10.0) Eosinophils (%) (Auto) 0.1 % (0.0-3.0) Basophils (%) (Auto) 0.4 % (0.0-2.0) Sodium Level 138 MMOL/L (136-145) Potassium Level 3.8 MMOL/L (3.5-5.1) Chloride Level 100 MMOL/L (98-107) Carbon Dioxide Level 33 MMOL/L (21-32) H Anion Gap 5 mmol/L (5-15) Blood Urea Nitrogen 14 mg/dL (7-18) Creatinine 0.9 MG/DL (0.55-1.30) Estimat Glomerular Filtration Rate > 60 mL/min (>60) Glucose Level 123 MG/DL (74-106) H Calcium Level 8.7 MG/DL (8.5-10.1) Prothrombin Time 11.7 SEC (9.30-11.50) H Prothromb Time International Ratio 1.1 (0.9-1.1) Plan Problems: (1) Cellulitis of right lower extremity Assessment & Plan: Pt presented on admission with Edema, Multiple Ulcerations R lower extremity. R Lower extremity is warm, erythematous with presence of Haemosiderin. Pt stated he has Hx. of recurrent Leg ulcerations. Wound zia R Tibia(L)0.8cm x (W)4.5cm. Fibrinous slough at base of wound. Borders are irregular and macerated. Weeping seropurulent exudate . Mild odor noted. Two wounds lateral RLE (L)5cm x (W)7.3cm. (Proximal)Superficial wound with 50% fibrinous slough,50% kenna. Borders are irregular and macerated. Exuding seropurulent exudate. Mild odor noted. (Distally) Lateral/posterior R Tibia (L)6.5cm x (W)7.4cm. Superficial wound with 90% fibrinous slough,10% kenna.Irregular borders that are macerated. Exuding moderate amt malodorous seropurulent exudate. Posterior R Tibia(L)1.2cm x (W)3.6cm. Superficial wound with 50% fibrinous slough,50% kenna. Irregular and macerated borders.Small amt seropurulent exudate. Mild odor noted. Small black nodule noted to posterior upper R thigh. No erythema or changes in skin temp at site. Pt stated he has had nodule for many years. Denied pain at site. Haemosiderin noted to LLE . No edema or ulcerations noted. Both heels are blanchable and firm. Tx.plan: Cleanse wounds R lower extremity with Saline. Apply Silvasorb Gel to each wound. Cover wounds with Maxsorb Extra (calcium Alginate). Cover wounds with ABD Pads. Wrap with Kerlix From Base of Toes to Below Knee. Change Daily and prn. Elevate leg with Pillow. IV ABx diet as tolerated Papi Tom Jan 04, 2021 13:33
--- NOTE | 2021-01-04 15:00 | NUR ---
NURSE NOTES: Patient state he is hungry, DR Corral called order to give patient a regular diet and to put in discharge order for 01/05/21. will be in to see patient later today.
[2021-01-04 16:00] VITALS: BP 131/59
--- NOTE | 2021-01-04 18:00 | NUR ---
NURSE NOTES: Patient tolerating diet,no complaint of nausea or vomiting.Dressing to the lower right t leg changed today.
--- NOTE | 2021-01-04 19:44 | NUR ---
NURSE HAND-OFF: Dyllan CRAWFORD Important Events on Shift:[tolerating diet,no nausea or vomiting.] Patient Status: [] Diet: [Regular] Pending Orders: Plan Discharge on 01/05/21] Pending Results/Labs:[] Pending MD notification:[] Latest Vital Signs: Temperature 98.2 , Pulse 62 , B/P 131 /59 , Respiratory Rate 20 , O2 SAT 94 , Room Air, O2 Flow Rate 2.0 . Vital Sign Comment: [] Latest Liu Fall Score: 45 Fall Risk: High Risk Safety Measures: Call light Within Reach, Bed Alarm Zone 1, Side Rails Side Rails x2, Bed position Low and Locked. Fall Precautions: Patient Fall Education Report given to [].
--- NOTE | 2021-01-04 19:55 | NUR ---
NURSE NOTES: Received report from Bebe CRAWFORD. Patient is awake, alert and oriented x4. Side rails are padded. On room air, breathing is even and unlabored. No complains of pain or distress noted. IV right hand infiltrated and discontinued by Bebe. Will start a new one later. R lower extremity dressing is intact and clean. Bed low and locked. Call light within reach.
[2021-01-04 20:00] VITALS: BP 125/57
[2021-01-04] MEDS: Tamsulosin 0.4mg cap ORAL SCH (20:50)
--- NOTE | 2021-01-04 23:35 | General Progress Note ---
Subjective Constitutional: Reports: no symptoms HEENT: Reports: no symptoms Cardiovascular: Reports: no symptoms Respiratory: Reports: no symptoms Gastrointestinal/Abdominal: Reports: no symptoms Genitourinary: Reports: no symptoms Neurologic/Psychiatric: Reports: no symptoms Endocrine: Reports: no symptoms Hematologic/Lymphatic: Reports: no symptoms Allergies: Coded Allergies: Dust (Verified Allergy, Severe, Severe coughing, 01/02/21) GRASS POLLEN (Verified Allergy, Severe, Severe coughing, 01/02/21) GARCIA (Verified Allergy, Intermediate, Coughing, 01/02/21) Anything garden related TREE AND SHRUB POLLEN (Verified Allergy, Intermediate, Coughing, 01/02/21) Severe coughing Objective Last 24 Hour Vital Signs Date Time Temp Pulse Resp B/P (MAP) Pulse Ox O2 Delivery O2 Flow Rate FiO2 01/04/21 21:00 Room Air 01/04/21 20:50 68 125/57 01/04/21 20:00 97.3 68 16 125/57 (79) 93 01/04/21 16:00 98.2 62 20 131/59 (83) 94 01/04/21 12:00 98.2 65 20 145/69 (94) 93 01/04/21 10:43 68 128/62 01/04/21 10:42 128/62 01/04/21 10:42 68 128/62 01/04/21 09:00 Room Air 01/04/21 08:00 98.5 73 20 135/61 (85) 93 01/04/21 04:00 98.5 74 20 153/80 (104) 93 01/04/21 00:00 99.0 81 20 143/80 (101) 94 Intake and Output 01/03/21 01/04/21 19:00 07:00 Intake Total 730 ml 900 ml Output Total 1550 ml Balance -820 ml 900 ml Intake Oral 730 ml IV Total 900 ml Output Urine Total 1550 ml # Bowel Movements 2 Laboratory Tests 01/04/21 05:20: White Blood Count 9.5, Red Blood Count 4.41L, Hemoglobin 12.0L, Hematocrit 36.9L , Mean Corpuscular Volume 84, Mean Corpuscular Hemoglobin 27.1, Mean Corpuscular Hemoglobin Concent 32.4, Red Cell Distribution Width 14.2, Platelet Count 274, M kate Platelet Volume 5.8L, Neutrophils (%) (Auto) 80.6H, Lymphocytes (%) (Auto) 12.9L, Monocytes (%) (Auto) 6.1, Eosinophils (%) (Auto) 0.1, Basophils (%) (Auto) 0.4, Sodium Level 138, Potassium Level 3.8, Chloride Level 100, Carbon Dioxide Level 33H, Anion Gap 5, Blood Urea Nitrogen 14, Creatinine 0.9, Estimat Glomerular Filtration Rate > 60, Glucose Level 123H, Calcium Level 8.7 01/04/21 08:45: Prothrombin Time 11.7H, Prothromb Time International Ratio 1.1 Height (Feet): 5 Height (Inches): 8.00 Weight (Pounds): 269 General Appearance: WD/WN, no apparent distress, alert EENT: normal ENT inspection, TMs normal Neck: normal alignment, supple Cardiovascular: normal rate, regular rhythm, no gallop/murmur, no JVD Respiratory/Chest: lungs clear, normal breath sounds, no respiratory distress, no accessory muscle use Abdomen: normal bowel sounds, non tender, soft, no organomegaly, no mass Skin: normal pigmentation, warm/dry Assessment/Plan Status Narrative Patient is awake alert afebrile hemodynamically stable he is only on morphine sulfate now his [facility] was withdrawn he is on clindamycin orally 600 cc p.o. 3 times daily is planned to be discharged tomorrow back to the extended care facility Juan Carlos Zhu MD, MD Jan 04, 2021 23:35
[2021-01-05] VITALS: BP 123/60
[2021-01-05] MEDS: Clindamycin 150mg cap ORAL SCH ×3 (00:24→12:16)
[2021-01-05] MEDS: MS Contin 15mg tab ORAL PRN ×3 (00:44→20:31)
[2021-01-05] MEDS: D5 1/2NS 1,000 ML IV SCH ×3 (02:37→22:00)
[2021-01-05 04:00] VITALS: BP 113/59
[2021-01-05] MEDS: HYDROcodone/Acetamin 5/325 tab ORAL PRN ×2 (04:09→16:51)
[2021-01-05 06:31] LABS: BASOPHILS % (AUTO) 0.9 % (0.0-2.0); EOSINOPHILS % (AUTO) 1.8 % (0.0-3.0); HEMATOCRIT 35.5 % (42.0-52.0); HEMOGLOBIN 11.4 G/DL (14.2-18.0); LYMPHOCYTES % (AUTO) 25.7 % (20.0-45.0); MEAN CORPUSCULAR VOLUME 84 FL (80-99); MONOCYTES % (AUTO) 11.1 % (1.0-10.0); NEUTROPHILS % (AUTO) 60.5 % (45.0-75.0); PLATELET COUNT 239 K/UL (150-450); RED BLOOD COUNT 4.21 M/UL (4.70-6.10); RED CELL DISTRIBUTION WIDTH 14.5 % (11.6-14.8); WHITE BLOOD COUNT 6.1 K/UL (4.8-10.8)
--- NOTE | 2021-01-05 06:43 | Hematology/Onc Progress Note ---
Assessment/Plan Assessment/Plan A/R # Hypercoagulable disorder -- at this time on xarelto --> continue xarelto at this time --> duplex legs is negative --> monitor for bleed # Anemia due to multifactorial causes --> hgb 12.5 # Cellulitis of right lower extremity --> on abx as per Id --> wound care and id f/u --> improving # Hyperglycemia # Dvt ppx xarelto Appreciate consultation and alexa Rn Subjective HEENT: Denies: no symptoms, eye pain, blurred vision, tearing, double vision, ear pain, ear discharge, nose pain, nose congestion, throat pain, throat swelling, mouth pain, mouth swelling, other Respiratory: Denies: no symptoms, cough, shortness of breath, SOB with excerti on, SOB at rest, sputum, wheezing, other Gastrointestinal/Abdominal: Denies: no symptoms, abdomen distended, abdominal pain, black stools, tarry stools, blood in stool, constipated, diarrhea, difficulty swallowing, nausea, poor appetite, poor fluid intake, rectal bleeding, vomiting, other Neurologic/Psychiatric: Denies: no symptoms, anxiety, depressed, emotional problems, headache, numbness, paresthesia, pre-existing deficit, seizure, tingling, tremors, weakness, other Endocrine: Denies: no symptoms, excessive sweating, flushing, intolerance to cold, intolerance to heat, increased hunger, increased thirst, increased urine, unexplained weight gain, unexplained weight loss, other Hematologic/Lymphatic: Denies: no symptoms, anemia, easy bleeding, easy bruising, adenopathy, other Allergies: Coded Allergies: Dust (Verified Allergy, Severe, Severe coughing, 01/02/21) GRASS POLLEN (Verified Allergy, Severe, Severe coughing, 01/02/21) GARCIA (Verified Allergy, Intermediate, Coughing, 01/02/21) Anything garden related TREE AND SHRUB POLLEN (Verified Allergy, Intermediate, Coughing, 01/02/21) Severe coughing Subjective 3/4 awake, alert, no bleeding, alexa rn Objective Objective Current Medications Medications (Trade) Dose Ordered Sig/Graciela Route PRN Reason Start Time Stop Time Status Last Admin Dose Admin Acetaminophen (Tylenol) 650 mg Q4H PRN ORAL For Pain 01/02/21 16:30 02/01/21 16:29 01/02/21 20:36 Acetaminophen/ Hydrocodone Bitart ([place] 5/325) 1 tab Q8H PRN ORAL for moderate pain 01/03/21 19:00 01/10/21 18:59 01/05/21 04:09 Amlodipine Besylate (Norvasc) 5 mg DAILY ORAL 01/03/21 09:00 02/02/21 08:59 01/04/21 10:43 Carvedilol (Coreg) 6.25 mg EVERY 12 HOURS ORAL 01/03/21 21:00 02/02/21 20:59 01/04/21 20:50 Clindamycin HCl (Cleocin) 450 mg EVERY 6 HOURS ORAL 01/03/21 12:00 01/10/21 11:59 01/05/21 05:59 Clonidine HCl (Catapres Tab) 0.1 mg Q8HR PRN ORAL SBP>160 01/03/21 19:00 04/03/21 18:59 Dextrose/Sodium Chloride 1,000 ml @ 100 mls/hr Q10H IV 01/03/21 20:00 02/02/21 19:59 01/05/21 02:37 Diphenhydramine HCl (Benadryl) 25 mg Q8HR PRN ORAL Itching 01/03/21 19:00 02/02/21 18:59 Divalproex Sodium (Depakote) 250 mg BEDTIME ORAL 01/03/21 21:00 02/02/21 20:59 01/04/21 20:50 Duloxetine HCl (Cymbalta) 30 mg DAILY ORAL 01/04/21 11:00 04/04/21 10:59 01/04/21 12:29 Famotidine (Pepcid) 20 mg DAILY ORAL 01/04/21 09:00 04/04/21 08:59 01/04/21 10:43 Irbesartan (Avapro) 75 mg DAILY ORAL 01/04/21 09:00 02/03/21 08:59 01/04/21 10:42 Levetiracetam (Keppra) 500 mg Q12HR ORAL 01/03/21 21:00 02/02/21 20:59 01/04/21 20:50 Morphine Sulfate (MS Contin) 15 mg Q8H PRN ORAL for severe pain 01/03/21 20:00 01/10/21 19:59 01/05/21 00:44 Multivitamins (Multivitamins) 1 tab DAILY ORAL 01/04/21 09:00 02/03/21 08:59 01/04/21 10:47 Olanzapine (ZyPREXA) 10 mg DAILY ORAL 01/03/21 09:00 02/17/21 08:59 01/04/21 10:59 Ondansetron HCl (Zofran) 4 mg Q4H PRN IVP Nausea & Vomiting 01/03/21 19:00 02/02/21 18:59 01/04/21 05:38 Pantoprazole (Protonix) 40 mg DAILY IVP 01/04/21 09:00 02/03/21 08:59 01/04/21 10:49 Rivaroxaban (Xarelto) 20 mg DAILY ORAL 01/03/21 09:00 04/03/21 08:59 01/04/21 10:47 Tamsulosin HCl (Flomax) 0.4 mg BEDTIME ORAL 01/03/21 21:00 02/02/21 20:59 01/04/21 20:50 Last 24 Hour Vital Signs Date Time Temp Pulse Resp B/P (MAP) Pulse Ox O2 Delivery O2 Flow Rate FiO2 01/05/21 04:00 98.1 61 16 113/59 (77) 94 01/05/21 00:00 97.7 66 16 123/60 (81) 92 01/04/21 21:00 Room Air 01/04/21 20:50 68 125/57 01/04/21 20:00 97.3 68 16 125/57 (79) 93 01/04/21 16:00 98.2 62 20 131/59 (83) 94 01/04/21 12:00 98.2 65 20 145/69 (94) 93 01/04/21 10:43 68 128/62 01/04/21 10:42 128/62 01/04/21 10:42 68 128/62 01/04/21 09:00 Room Air 01/04/21 08:00 98.5 73 20 135/61 (85) 93 01/04/21 04:00 98.5 74 20 153/80 (104) 93 01/04/21 00:00 99.0 81 20 143/80 (101) 94 3/2/21 21:23 88 136/72 01/03/21 21:00 Room Air 01/03/21 20:00 99.8 88 20 136/72 (93) 93 01/03/21 16:14 99.3 90 147/68 (94) 01/03/21 16:00 99.4 90 20 170/80 (110) 91 01/03/21 12:00 98.8 83 20 148/65 (92) 91 01/03/21 09:00 Room Air 01/03/21 08:26 83 139/76 01/03/21 08:00 97.8 83 18 139/76 (97) 93 Intake and Output 01/04/21 01/05/21 19:00 07:00 Intake Total 1260 ml 400 ml Output Total 325 ml Balance 935 ml 400 ml Intake Oral 360 ml 400 ml IV Total 900 ml Output Urine Total 325 ml # Voids 5 3 Labs Test 01/02/21 11:50 01/03/21 05:15 01/04/21 05:20 01/04/21 08:45 White Blood Count 8.3 K/UL (4.8-10.8) 8.0 K/UL (4.8-10.8) 9.5 K/UL (4.8-10.8) Red Blood Count 4.67 M/UL (4.70-6.10) 4.26 M/UL (4.70-6.10) 4.41 M/UL (4.70-6.10) Hemoglobin 12.5 G/DL (14.2-18.0) 11.4 G/DL (14.2-18.0) 12.0 G/DL (14.2-18.0) Hematocrit 39.2 % (42.0-52.0) 36.4 % (42.0-52.0) 36.9 % (42.0-52.0) Mean Corpuscular Volume 84 FL (80-99) 85 FL (80-99) 84 FL (80-99) Mean Corpuscular Hemoglobin 26.8 PG (27.0-31.0) 26.8 PG (27.0-31.0) 27.1 PG (27.0-31.0) Mean Corpuscular Hemoglobin Concent 31.8 G/DL (32.0-36.0) 31.4 G/DL (32.0-36.0) 32.4 G/DL (32.0-36.0) Red Cell Distribution Width 14.7 % (11.6-14.8) 14.4 % (11.6-14.8) 14.2 % (11.6-14.8) Platelet Count 299 K/UL (150-450) 275 K/UL (150-450) 274 K/UL (150-450) Mean Platelet Volume 6.1 FL (6.5-10.1) 6.0 FL (6.5-10.1) 5.8 FL (6.5-10.1) Neutrophils (%) (Auto) 65.5 % (45.0-75.0) 69.7 % (45.0-75.0) 80.6 % (45.0-75.0) Lymphocytes (%) (Auto) 20.8 % (20.0-45.0) 18.6 % (20.0-45.0) 12.9 % (20.0-45.0) Monocytes (%) (Auto) 11.8 % (1.0-10.0) 9.6 % (1.0-10.0) 6.1 % (1.0-10.0) Eosinophils (%) (Auto) 1.3 % (0.0-3.0) 1.3 % (0.0-3.0) 0.1 % (0.0-3.0) Basophils (%) (Auto) 0.7 % (0.0-2.0) 0.8 % (0.0-2.0) 0.4 % (0.0-2.0) Sodium Level 139 MMOL/L (136-145) 138 MMOL/L (136-145) Potassium Level 4.4 MMOL/L (3.5-5.1) 3.8 MMOL/L (3.5-5.1) Chloride Level 100 MMOL/L (98-107) 100 MMOL/L (98-107) Carbon Dioxide Level 35 MMOL/L (21-32) 33 MMOL/L (21-32) Anion Gap 4 mmol/L (5-15) 5 mmol/L (5-15) Blood Urea Nitrogen 17 mg/dL (7-18) 14 mg/dL (7-18) Creatinine 1.0 MG/DL (0.55-1.30) 0.9 MG/DL (0.55-1.30) Estimat Glomerular Filtration Rate > 60 mL/min (>60) > 60 mL/min (>60) Glucose Level 90 MG/DL (74-106) 123 MG/DL (74-106) Lactic Acid Level 0.90 mmol/L (0.4-2.0) Calcium Level 9.1 MG/DL (8.5-10.1) 8.7 MG/DL (8.5-10.1) Total Bilirubin 0.2 MG/DL (0.2-1.0) Aspartate Amino Transf (AST/SGOT) 17 U/L (15-37) Alanine Aminotransferase (ALT/SGPT) 22 U/L (12-78) Alkaline Phosphatase 79 U/L (46-116) Total Protein 7.3 G/DL (6.4-8.2) Albumin 3.0 G/DL (3.4-5.0) Globulin 4.3 g/dL Albumin/Globulin Ratio 0.7 (1.0-2.7) Prothrombin Time 11.7 SEC (9.30-11.50) Prothromb Time International Ratio 1.1 (0.9-1.1) Test 01/05/21 05:52 Height (Feet): 5 Height (Inches): 8.00 Weight (Pounds): 269 Objective Physical Exam Vitals: reviewed, normal General: no apparent distress, alert, GCS 15, non-toxic, obese HEENT: hearing grossly normal, normal pharynx, no angioedema, normal voice Neck: full range of motion, supple/symm/no masses Respiratory: chest non-tender, lungs clear, normal breath sounds, speaking full sentences Cardiovascular: regular rate, rhythm, no edema Gi: normal bowel sounds, non tender, soft, non-distended, no guarding, no diego ound Rectal: deferred Genitourinary: normal inspection, no CVA tenderness Neurologic: alert, motor strength/tone normal Ext: Healing cellulitis to the left lower extremity Lymphatic: no adenopathy Nayan Benavidez MD Jan 05, 2021 06:43
--- NOTE | 2021-01-05 07:55 | NUR ---
NURSE NOTES: Patient alert x4; on room air; IV Left-Hand 24G D51/2NS 100cc running; dressing on Right Lower Extremity dry and intact; Urinal within reach; PM nurseDyllan received call from microbiology that Wound culture positive for MRSA; PM nurseDyllan left a message to MD Fraire and MD Corral; waiting for call back; there is a discharge order for this patient, no medication order in place; will followup on that; side rails up x2, breaks engaged, bed at lowest position; call light within reach; will keep monitoring.
--- NOTE | 2021-01-05 07:58 | NUR ---
NURSE NOTES: Received telephone report from microbiology about patient's would culture positive for MRSA. Attempted to notified and about the result. Left a voicemail to .
[2021-01-05 08:00] VITALS: BP 121/61
--- NOTE | 2021-01-05 08:05 | NUR ---
NURSE NOTES: called back and said to wait until he sees the patient before discharge.
--- NOTE | 2021-01-05 08:16 | NUR ---
NURSE HAND-OFF: Important Events on Shift: D/C planning Patient Status: Stable Diet: Regular Pending Orders: [] Pending Results/Labs:[] Pending MD notification:[] Latest Vital Signs: Temperature 98.1 , Pulse 61 , B/P 113 /59 , Respiratory Rate 16 , O2 SAT 94 , Room Air, O2 Flow Rate 2.0 . Vital Sign Comment: VS stable Latest Liu Fall Score: 45 Fall Risk: High Risk Safety Measures: Call light Within Reach, Bed Alarm Zone 1, Side Rails Side Rails x2, Bed position Low and Locked. Fall Precautions: Patient Fall Education Report given to Karla CRAWFORD.
--- NOTE | 2021-01-05 08:44 | NUR ---
NURSE NOTES: I received a call from MD Corral, to cancel discharge and to put Vancomycin 1gm Q12H; order carried out as order received;
[2021-01-05] MEDS: OLANZapine 10mg tab ORAL SCH (08:47)
[2021-01-05] MEDS: Pantoprazole Inj IVP SCH (08:47)
[2021-01-05] MEDS: Carvedilol 6.25mg Tab ORAL SCH ×2 (08:47→20:15)
[2021-01-05] MEDS: Irbesartan 150mg tablet ORAL SCH (08:47)
[2021-01-05] MEDS: Xarelto 10mg tab ORAL SCH (08:48)
[2021-01-05] MEDS: DULoxetine 30mg cap ORAL SCH (08:48)
[2021-01-05] MEDS ORDERED: Vancomycin 1 GM in D5W 275 ML IVPB SCH (10:00)
--- NOTE | 2021-01-05 10:31 | Surgery Progress Note ---
Surgery Progress Note Subjective Symptoms: improved, tolerating diet, passing flatus, pain decreased Objective Last 24 Hour Vital Signs Date Time Temp Pulse Resp B/P (MAP) Pulse Ox O2 Delivery O2 Flow Rate FiO2 01/05/21 09:00 Room Air 01/05/21 08:48 78 121/61 01/05/21 08:47 121/61 01/05/21 08:47 78 121/61 01/05/21 08:00 97.9 78 19 121/61 (81) 93 01/05/21 04:00 98.1 61 16 113/59 (77) 94 01/05/21 00:00 97.7 66 16 123/60 (81) 92 01/04/21 21:00 Room Air 01/04/21 20:50 68 125/57 01/04/21 20:00 97.3 68 16 125/57 (79) 93 01/04/21 16:00 98.2 62 20 131/59 (83) 94 01/04/21 12:00 98.2 65 20 145/69 (94) 93 01/04/21 10:43 68 128/62 01/04/21 10:42 128/62 01/04/21 10:42 68 128/62 I&O Intake and Output 01/04/21 01/05/21 19:00 07:00 Intake Total 1260 ml 500 ml Output Total 325 ml Balance 935 ml 500 ml Intake Oral 360 ml 400 ml IV Total 900 ml 100 ml Output Urine Total 325 ml # Voids 5 3 Dressing: dry Wound: clean Cardiovascular: RSR Respiratory: clear Abdomen: soft, flat, non-tender, present bowel sounds, non-distended Extremities: edema, no tenderness, no cyanosis, pulses, other Laboratory Tests Test 01/05/21 05:52 White Blood Count 6.1 K/UL (4.8-10.8) Red Blood Count 4.21 M/UL (4.70-6.10) L Hemoglobin 11.4 G/DL (14.2-18.0) L Hematocrit 35.5 % (42.0-52.0) L Mean Corpuscular Volume 84 FL (80-99) Mean Corpuscular Hemoglobin 27.1 PG (27.0-31.0) Mean Corpuscular Hemoglobin Concent 32.2 G/DL (32.0-36.0) Red Cell Distribution Width 14.5 % (11.6-14.8) Platelet Count 239 K/UL (150-450) Mean Platelet Volume 5.7 FL (6.5-10.1) L Neutrophils (%) (Auto) 60.5 % (45.0-75.0) Lymphocytes (%) (Auto) 25.7 % (20.0-45.0) Monocytes (%) (Auto) 11.1 % (1.0-10.0) H Eosinophils (%) (Auto) 1.8 % (0.0-3.0) Basophils (%) (Auto) 0.9 % (0.0-2.0) Plan Problems: (1) Cellulitis of right lower extremity Assessment & Plan: Pt presented on admission with Edema, Multiple Ulcerations R lower extremity. R Lower extremity is warm, erythematous with presence of Haemosiderin. Pt stated he has Hx. of recurrent Leg ulcerations. Wound zia R Tibia(L)0.8cm x (W)4.5cm. Fibrinous slough at base of wound. Borders are irregular and macerated. Weeping seropurulent exudate . Mild odor noted. Two wounds lateral RLE (L)5cm x (W)7.3cm. (Proximal)Superficial wound with 50% fibrinous slough,50% kenna. Borders are irregular and macerated. Exuding seropurulent exudate. Mild odor noted. (Distally) Lateral/posterior R Tibia (L)6.5cm x (W)7.4cm. Superficial wound with 90% fibrinous slough,10% kenna.Irregular borders that are macerated. Exuding moderate amt malodorous seropurulent exudate. Posterior R Tibia(L)1.2cm x (W)3.6cm. Superficial wound with 50% fibrinous slough,50% kenna. Irregular and macerated borders.Small amt seropurulent exudate. Mild odor noted. Small black nodule noted to posterior upper R thigh. No erythema or changes in skin temp at site. Pt stated he has had nodule for many years. Denied pain at site. Haemosiderin noted to LLE . No edema or ulcerations noted. Both heels are blanchable and firm. Tx.plan: Cleanse wounds R lower extremity with Saline. Apply Silvasorb Gel to each wound. Cover wounds with Maxsorb Extra (calcium Alginate). Cover wounds with ABD Pads. Wrap with Kerlix From Base of Toes to Below Knee. Change Daily and prn. Elevate leg with Pillow. IV ABx diet as tolerated feels better today dressings going well On the right, waveforms are biphasic at the common femoral and superficial femoral artery levels. Forms are monophasic but with sharp systolic upstrokes at the popliteal artery level. The tibial arteries could not be accessed due to the presence of bandages On the left, triphasic waveforms are seen at the common femoral, superficial femoral, popliteal artery levels, and biphasic waveforms are seen in the tibial arteries. A focal flow velocity elevation is seen in the left at the posterior tibial artery level proximally. Impression: Incomplete evaluation of the right leg. Evidence of mild suprage niculate stenosis, but the tibial vessels could not be evaluated No evidence of significant arterial insufficiency on the left. Note, however, evidence of a significant stenosis in the posterior tibial artery proximally Papi Tom Jan 05, 2021 10:31
[2021-01-05 12:00] VITALS: BP 143/63
--- NOTE | 2021-01-05 13:18 | Infectious Diseases Prog Note ---
Assessment/Plan 65 yo male cristiano PMHx of Obesity, HTN, HLD, OA and psych disorder who presented to the ED on 01/02/21 with b/l foot erythema and swelling. Cellulitis with blisters R/L Wound Cx 01/02/21 - S. aureus, Providencia Afebrile No leukocytosis Obesity HTN HLD OA PLAN Unfortunately there are no PO options for the providencia bacteria in his leg wounds - Continue Vancomycin Per pharmacy (End date 01/15/21) - Start Cefepime 1g Q8hr #1 (End date 01/15/21) - One d/c could switch patient to Ertapenem 1g Qday if this covered by his insurance as it is easier to dose. Ok to D/C from an ID perspective - f/u Cultures - Monitor cellulitis - Elevation of feet and wound care - Monitor CBC and Temps Thank you for this consult. [facility] will continue to follow Mr. Gracia with you during this hospitalization. Subjective Allergies: Coded Allergies: Dust (Verified Allergy, Severe, Severe coughing, 01/02/21) GRASS POLLEN (Verified Allergy, Severe, Severe coughing, 01/02/21) GARCIA (Verified Allergy, Intermediate, Coughing, 01/02/21) Anything garden related TREE AND SHRUB POLLEN (Verified Allergy, Intermediate, Coughing, 01/02/21) Severe coughing Afebrile Reports feeling well No Leukocytosis Wounds/cellulitis stable Objective Last 24 Hour Vital Signs Date Time Temp Pulse Resp B/P (MAP) Pulse Ox O2 Delivery O2 Flow Rate FiO2 01/05/21 12:00 98.0 70 20 143/63 (89) 93 01/05/21 11:31 97.9 01/05/21 09:00 Room Air 01/05/21 08:48 78 121/61 01/05/21 08:47 121/61 01/05/21 08:47 78 121/61 01/05/21 08:00 97.9 78 19 121/61 (81) 93 01/05/21 04:00 98.1 61 16 113/59 (77) 94 01/05/21 00:00 97.7 66 16 123/60 (81) 92 01/04/21 21:00 Room Air 01/04/21 20:50 68 125/57 01/04/21 20:00 97.3 68 16 125/57 (79) 93 01/04/21 16:00 98.2 62 20 131/59 (83) 94 Height (Feet): 5 Height (Inches): 8.00 Weight (Pounds): 269 GEN: NAD HEENT: NCAT, MMM, EOMI, No scleral ictersu Neck: Supple, Normal ROM LUNGS: CTAB, No W/C Heart: RRR, S1, S2 Abd: Obese, Soft, NT, + BS Neuro: A/O x 4 Ext Left leg edema resolved, Right leg still with edema and erythema and some blistering/ulcerations of lower Ext, There is an exudate from the ulcers Microbiology Date/Time Source Procedure Growth Status 01/02/21 15:48 Nasal Nares MRSA Culture - Final NO METHICILLIN RESISTANT STAPH AUREUS... Complete Laboratory Tests Test 01/05/21 05:52 White Blood Count 6.1 K/UL (4.8-10.8) Red Blood Count 4.21 M/UL (4.70-6.10) L Hemoglobin 11.4 G/DL (14.2-18.0) L Hematocrit 35.5 % (42.0-52.0) L Mean Corpuscular Volume 84 FL (80-99) Mean Corpuscular Hemoglobin 27.1 PG (27.0-31.0) Mean Corpuscular Hemoglobin Concent 32.2 G/DL (32.0-36.0) Red Cell Distribution Width 14.5 % (11.6-14.8) Platelet Count 239 K/UL (150-450) Mean Platelet Volume 5.7 FL (6.5-10.1) L Neutrophils (%) (Auto) 60.5 % (45.0-75.0) Lymphocytes (%) (Auto) 25.7 % (20.0-45.0) Monocytes (%) (Auto) 11.1 % (1.0-10.0) H Eosinophils (%) (Auto) 1.8 % (0.0-3.0) Basophils (%) (Auto) 0.9 % (0.0-2.0) Current Medications Medications (Trade) Dose Ordered Sig/Graciela Route PRN Reason Start Time Stop Time Status Last Admin Dose Admin Acetaminophen (Tylenol) 650 mg Q4H PRN ORAL For Pain 01/02/21 16:30 02/01/21 16:29 01/02/21 20:36 Acetaminophen/ Hydrocodone Bitart ([place] 5/325) 1 tab Q8H PRN ORAL for moderate pain 01/03/21 19:00 01/10/21 18:59 01/05/21 04:09 Amlodipine Besylate (Norvasc) 5 mg DAILY ORAL 01/03/21 09:00 02/02/21 08:59 01/05/21 08:48 Carvedilol (Coreg) 6.25 mg EVERY 12 HOURS ORAL 01/03/21 21:00 02/02/21 20:59 01/05/21 08:47 Clindamycin HCl (Cleocin) 450 mg EVERY 6 HOURS ORAL 01/03/21 12:00 01/10/21 11:59 01/05/21 12:16 Clonidine HCl (Catapres Tab) 0.1 mg Q8HR PRN ORAL SBP>160 01/03/21 19:00 04/03/21 18:59 Dextrose/Sodium Chloride 1,000 ml @ 100 mls/hr Q10H IV 01/03/21 20:00 02/02/21 19:59 01/05/21 02:37 Diphenhydramine HCl (Benadryl) 25 mg Q8HR PRN ORAL Itching 01/03/21 19:00 02/02/21 18:59 Divalproex Sodium (Depakote) 250 mg BEDTIME ORAL 01/03/21 21:00 02/02/21 20:59 01/04/21 20:50 Duloxetine HCl (Cymbalta) 30 mg DAILY ORAL 01/04/21 11:00 04/04/21 10:59 01/05/21 08:48 Famotidine (Pepcid) 20 mg DAILY ORAL 01/04/21 09:00 04/04/21 08:59 01/05/21 08:48 Irbesartan (Avapro) 75 mg DAILY ORAL 01/04/21 09:00 02/03/21 08:59 01/05/21 08:47 Levetiracetam (Keppra) 500 mg Q12HR ORAL 01/03/21 21:00 02/02/21 20:59 01/05/21 08:48 Morphine Sulfate (MS Contin) 15 mg Q8H PRN ORAL for severe pain 01/03/21 20:00 01/10/21 19:59 01/05/21 11:01 Multivitamins (Multivitamins) 1 tab DAILY ORAL 01/04/21 09:00 02/03/21 08:59 01/05/21 08:47 Olanzapine (ZyPREXA) 10 mg DAILY ORAL 01/03/21 09:00 02/17/21 08:59 01/05/21 08:47 Ondansetron HCl (Zofran) 4 mg Q4H PRN IVP Nausea & Vomiting 01/03/21 19:00 02/02/21 18:59 01/04/21 05:38 Pantoprazole (Protonix) 40 mg DAILY IVP 01/04/21 09:00 02/03/21 08:59 01/05/21 08:47 Rivaroxaban (Xarelto) 20 mg DAILY ORAL 01/03/21 09:00 04/03/21 08:59 01/05/21 08:48 Tamsulosin HCl (Flomax) 0.4 mg BEDTIME ORAL 01/03/21 21:00 02/02/21 20:59 01/04/21 20:50 Vancomycin HCl 1 gm/Dextrose 275 ml @ 183.708 mls/hr Q12HR IVPB 01/05/21 10:00 01/10/21 09:59 01/05/21 10:54 Sonny Carrasco MD Jan 05, 2021 13:18
[2021-01-05] MEDS: Cefepime HCl 1 GM in D5W 55 ML IVPB SCH ×2 (14:36→22:05)
[2021-01-05] MEDS ORDERED: Vancomycin 750mg/NS 275ml IVPB ONE ×2 (15:00)
[2021-01-05 16:00] VITALS: BP 145/66
--- NOTE | 2021-01-05 16:10 | NUR ---
NURSE NOTES: RN asked patient his right foot dressing to be changed; patient stated that the dressing isn't soiled and want it to be changed later.
--- NOTE | 2021-01-05 19:28 | NUR ---
NURSE HAND-OFF: Important Events on Shift:MRSA Wound, Isolation initiated; Discharge cancles; anti-biotics Patient Status: Diet: Pending Orders: Pending Results/Labs: Pending MD notification: Latest Vital Signs: Temperature 97.8 , Pulse 65 , B/P 145 /66 , Respiratory Rate 20 , O2 SAT 92 , Room Air, O2 Flow Rate 2.0 . Vital Sign Comment: Latest Liu Fall Score: 45 Fall Risk: High Risk Safety Measures: Call light Within Reach, Bed Alarm Zone 1, Side Rails Side Rails x2, Bed position Low and Locked. Fall Precautions: Patient Fall Education Report given to .
--- NOTE | 2021-01-05 19:52 | NUR ---
NURSE NOTES: RECEIVED PATIENT LYING IN BED, AWAKE, ALERT/ORIENTED X4, ABLE TO VERBALIZE NEEDS. DRESSING DRY AND INTACT TO RIGHT LOWER EXTREMITY, REINFORCED PAIN MANAGEMENT PLAN OF CARE, VERBALIZED UNDERSTANDING. IV INTACT TO LEFT HAND/GAUGE 24, NO REDNESS/SWELLING NOTED, TOLERATING IV FLUIDS. NO SIGNS AND SYMPTOMS OF ACUTE CARDIO RESPIRATORY DISTRESS/SHORTNESS OF BREATH, DENIES CHEST PAIN. CONDOM CATHETER INTACT, DRAINING YELLOW URINE VIA GRAVITY. ENCOURAGED PATIENT TO UTILIZE CALL LIGHT FOR ASSISTANCE, VERBALIZED UNDERSTANDING. SIDE RAILS UP X2 FOR MOBILITY, BED IN LOWEST POSITION FOR SAFETY.
--- NOTE | 2021-01-05 19:59 | NUR ---
NURSE NOTES: DR. SHAHID IN TO ASSESS PATIENT, NO NEW ORDERS.
[2021-01-05 20:00] VITALS: BP 131/57
--- NOTE | 2021-01-05 20:08 | General Progress Note ---
Subjective Constitutional: Reports: no symptoms HEENT: Reports: no symptoms Cardiovascular: Reports: no symptoms Respiratory: Reports: no symptoms Gastrointestinal/Abdominal: Reports: no symptoms Genitourinary: Reports: no symptoms Neurologic/Psychiatric: Reports: no symptoms Endocrine: Reports: no symptoms Hematologic/Lymphatic: Reports: no symptoms Allergies: Coded Allergies: Dust (Verified Allergy, Severe, Severe coughing, 01/02/21) GRASS POLLEN (Verified Allergy, Severe, Severe coughing, 01/02/21) GARCIA (Verified Allergy, Intermediate, Coughing, 01/02/21) Anything garden related TREE AND SHRUB POLLEN (Verified Allergy, Intermediate, Coughing, 01/02/21) Severe coughing Objective Last 24 Hour Vital Signs Date Time Temp Pulse Resp B/P (MAP) Pulse Ox O2 Delivery O2 Flow Rate FiO2 01/05/21 17:21 97.8 01/05/21 16:00 97.8 65 20 145/66 (92) 92 01/05/21 12:00 98.0 70 20 143/63 (89) 93 01/05/21 11:31 97.9 01/05/21 09:00 Room Air 01/05/21 08:48 78 121/61 01/05/21 08:47 121/61 01/05/21 08:47 78 121/61 01/05/21 08:00 97.9 78 19 121/61 (81) 93 01/05/21 04:00 98.1 61 16 113/59 (77) 94 01/05/21 00:00 97.7 66 16 123/60 (81) 92 01/04/21 21:00 Room Air 01/04/21 20:50 68 125/57 Intake and Output 01/04/21 01/05/21 19:00 07:00 Intake Total 1260 ml 500 ml Output Total 325 ml Balance 935 ml 500 ml Intake Oral 360 ml 400 ml IV Total 900 ml 100 ml Output Urine Total 325 ml # Voids 5 3 Laboratory Tests 01/05/21 05:52: White Blood Count 6.1, Red Blood Count 4.21L, Hemoglobin 11.4L, Hematocrit 35.5L , Mean Corpuscular Volume 84, Mean Corpuscular Hemoglobin 27.1, Mean Corpuscular Hemoglobin Concent 32.2, Red Cell Distribution Width 14.5, Platelet Count 239, Mean Platelet Volume 5.7L, Neutrophils (%) (Auto) 60.5, Lymphocytes (%) (Auto) 25.7, Monocytes (%) (Auto) 11.1H, Eosinophils (%) (Auto) 1.8, Basophils (%) (Auto) 0.9 Height (Feet): 5 Height (Inches): 8.00 Weight (Pounds): 269 General Appearance: WD/WN, no apparent distress, alert EENT: normal ENT inspection Neck: normal alignment, supple Cardiovascular: normal rate, regular rhythm, no gallop/murmur, no JVD Respiratory/Chest: lungs clear, normal breath sounds, no respiratory distress, no accessory muscle use Abdomen: normal bowel sounds, non tender, soft, no organomegaly, no mass Neurologic: alert Skin: warm/dry Assessment/Plan Status Narrative Patient was about to be discharged when wound culture revealed the patient have MRSA and Pseudomonas in the wound Comycin and cefepime was started and patient now is on cefepime 1 g IV piggyback every 12 and vancomycin 1 g IV piggyback every 12 a.m. afebrile hemodynamically stable without leukocytosis or tachy cardia continue with IV antibiotic for a while but patient will complete the total course of antibiotic in the extended care facility laboratory tests will be done in a.m. Juan Carlos Murguia MD, MD Jan 05, 2021 20:08
[2021-01-05] MEDS: Tamsulosin 0.4mg cap ORAL SCH (20:14)
[2021-01-06] VITALS: BP 123/56
[2021-01-06] MEDS: D5 1/2NS 1,000 ML IV SCH ×2 (01:35→18:00)
[2021-01-06] MEDS: Vancomycin 1gm/D5W 275ml IVPB SCH ×4 (02:53→15:28)
[2021-01-06 04:00] VITALS: BP 134/61
[2021-01-06] MEDS: MS Contin 15mg tab ORAL PRN ×2 (05:45→15:29)
[2021-01-06] MEDS: Cefepime HCl 1 GM in D5W 55 ML IVPB SCH ×2 (05:49→14:09)
[2021-01-06 06:25] LABS: BASOPHILS % (AUTO) 1.5 % (0.0-2.0); EOSINOPHILS % (AUTO) 1.7 % (0.0-3.0); HEMATOCRIT 37.5 % (42.0-52.0); HEMOGLOBIN 12.2 G/DL (14.2-18.0); LYMPHOCYTES % (AUTO) 18.2 % (20.0-45.0); MEAN CORPUSCULAR VOLUME 84 FL (80-99); MONOCYTES % (AUTO) 9.8 % (1.0-10.0); NEUTROPHILS % (AUTO) 68.9 % (45.0-75.0); PLATELET COUNT 248 K/UL (150-450); RED BLOOD COUNT 4.49 M/UL (4.70-6.10); RED CELL DISTRIBUTION WIDTH 13.9 % (11.6-14.8); WHITE BLOOD COUNT 7.7 K/UL (4.8-10.8)
--- NOTE | 2021-01-06 06:33 | Hematology/Onc Progress Note ---
Assessment/Plan Assessment/Plan A/R # Hypercoagulable disorder -- at this time on xarelto --> continue xarelto at this time --> duplex legs is negative --> monitor for bleed # Anemia due to multifactorial causes --> hgb 12.5 # Cellulitis of right lower extremity --> on abx as per Id --> wound care and id f/u --> improving # Hyperglycemia # Dvt ppx xarelto Appreciate consultation and alexa Rn Subjective Constitutional: Denies: no symptoms, chills, fever, malaise, weakness, other HEENT: Denies: no symptoms, eye pain, blurred vision, tearing, double vision, ear pain, ear discharge, nose pain, nose congestion, throat pain, throat swelling, mouth pain, mouth swelling, other Cardiovascular: Denies: no symptoms, chest pain, edema, irregular heart rate, lightheadedness, palpitations, syncope, other Respiratory: Denies: no symptoms, cough, shortness of breath, SOB with excertion, SOB at rest, sputum, wheezing, other Neurologic/Psychiatric: Denies: no symptoms, anxiety, depressed, emotional p roblems, headache, numbness, paresthesia, pre-existing deficit, seizure, tingling, tremors, weakness, other Endocrine: Denies: no symptoms, excessive sweating, flushing, intolerance to cold, intolerance to heat, increased hunger, increased thirst, increased urine, unexplained weight gain, unexplained weight loss, other Allergies: Coded Allergies: Dust (Verified Allergy, Severe, Severe coughing, 01/02/21) GRASS POLLEN (Verified Allergy, Severe, Severe coughing, 01/02/21) GARCIA (Verified Allergy, Intermediate, Coughing, 01/02/21) Anything garden related TREE AND SHRUB POLLEN (Verified Allergy, Intermediate, Coughing, 01/02/21) Severe coughing Subjective 3/4 awake, alert, no bleeding, dw rn 01/06 labs reviewed, is with chandrakant, dressing change to foot Objective Objective Current Medications Medications (Trade) Dose Ordered Sig/Graciela Route PRN Reason Start Time Stop Time Status Last Admin Dose Admin Acetaminophen (Tylenol) 650 mg Q4H PRN ORAL For Pain 01/02/21 16:30 02/01/21 16:29 01/02/21 20:36 Acetaminophen/ Hydrocodone Bitart ([place] 5/325) 1 tab Q8H PRN ORAL for moderate pain 01/03/21 19:00 01/10/21 18:59 01/05/21 16:51 Amlodipine Besylate (Norvasc) 5 mg DAILY ORAL 01/03/21 09:00 02/02/21 08:59 01/05/21 08:48 Carvedilol (Coreg) 6.25 mg EVERY 12 HOURS ORAL 01/03/21 21:00 02/02/21 20:59 01/05/21 20:15 Cefepime HCl 1 gm/ Dextrose 55 ml @ 110 mls/hr EVERY 8 HOURS IVPB 01/05/21 14:00 01/12/21 13:59 01/06/21 05:49 Clonidine HCl (Catapres Tab) 0.1 mg Q8HR PRN ORAL SBP>160 01/03/21 19:00 04/03/21 18:59 Dextrose/Sodium Chloride 1,000 ml @ 100 mls/hr Q10H IV 01/03/21 20:00 02/02/21 19:59 01/06/21 01:35 Diphenhydramine HCl (Benadryl) 25 mg Q8HR PRN ORAL Itching 01/03/21 19:00 02/02/21 18:59 Divalproex Sodium (Depakote) 250 mg BEDTIME ORAL 01/03/21 21:00 02/02/21 20:59 01/05/21 20:14 Duloxetine HCl (Cymbalta) 30 mg DAILY ORAL 01/04/21 11:00 04/04/21 10:59 01/05/21 08:48 Famotidine (Pepcid) 20 mg DAILY ORAL 01/04/21 09:00 04/04/21 08:59 01/05/21 08:48 Irbesartan (Avapro) 75 mg DAILY ORAL 01/04/21 09:00 02/03/21 08:59 01/05/21 08:47 Levetiracetam (Keppra) 500 mg Q12HR ORAL 01/03/21 21:00 02/02/21 20:59 01/05/21 20:15 Morphine Sulfate (MS Contin) 15 mg Q8H PRN ORAL for severe pain 01/03/21 20:00 01/10/21 19:59 01/06/21 05:45 Multivitamins (Multivitamins) 1 tab DAILY ORAL 01/04/21 09:00 02/03/21 08:59 01/05/21 08:47 Olanzapine (ZyPREXA) 10 mg DAILY ORAL 01/03/21 09:00 02/17/21 08:59 01/05/21 08:47 Ondansetron HCl (Zofran) 4 mg Q4H PRN IVP Nausea & Vomiting 01/03/21 19:00 02/02/21 18:59 01/04/21 05:38 Pantoprazole (Protonix) 40 mg DAILY ORAL 01/06/21 09:00 02/05/21 08:59 Rivaroxaban (Xarelto) 20 mg DAILY ORAL 01/03/21 09:00 04/03/21 08:59 01/05/21 08:48 Tamsulosin HCl (Flomax) 0.4 mg BEDTIME ORAL 01/03/21 21:00 02/02/21 20:59 01/05/21 20:14 Vancomycin HCl (Vanco pharmacy to dose) 1 ea DAILY PRN MISC rx protocol 01/05/21 13:30 02/04/21 13:29 Vancomycin HCl 1 gm/Dextrose 275 ml @ 183.708 mls/hr Q12H IVPB 01/06/21 03:00 01/11/21 02:59 01/06/21 02:53 Last 24 Hour Vital Signs Date Time Temp Pulse Resp B/P (MAP) Pulse Ox O2 Delivery O2 Flow Rate FiO2 01/06/21 04:00 96.8 66 20 134/61 (85) 95 01/06/21 00:00 97.8 64 20 123/56 (78) 98 01/05/21 21:28 Room Air 01/05/21 21:01 97.8 01/05/21 20:15 90 121/73 01/05/21 20:00 98.1 69 20 131/57 (81) 93 01/05/21 17:21 97.8 01/05/21 16:00 97.8 65 20 145/66 (92) 92 01/05/21 12:00 98.0 70 20 143/63 (89) 93 01/05/21 11:31 97.9 01/05/21 09:00 Room Air 01/05/21 08:48 78 121/61 01/05/21 08:47 121/61 01/05/21 08:47 78 121/61 01/05/21 08:00 97.9 78 19 121/61 (81) 93 01/05/21 04:00 98.1 61 16 113/59 (77) 94 01/05/21 00:00 97.7 66 16 123/60 (81) 92 01/04/21 21:00 Room Air 01/04/21 20:50 68 125/57 01/04/21 20:00 97.3 68 16 125/57 (79) 93 01/04/21 16:00 98.2 62 20 131/59 (83) 94 01/04/21 12:00 98.2 65 20 145/69 (94) 93 01/04/21 10:43 68 128/62 01/04/21 10:42 128/62 01/04/21 10:42 68 128/62 01/04/21 09:00 Room Air 01/04/21 08:00 98.5 73 20 135/61 (85) 93 Intake and Output 01/05/21 01/06/21 19:00 07:00 Intake Total 2837.416 ml 875 ml Output Total 400 ml Balance 2437.416 ml 875 ml Intake Oral 1560 ml 120 ml IV Total 1277.416 ml 755 ml Output Urine Total 400 ml # Voids 2 Labs Test 01/04/21 05:20 01/04/21 08:45 01/05/21 05:52 01/06/21 05:45 White Blood Count 9.5 K/UL (4.8-10.8) 6.1 K/UL (4.8-10.8) Red Blood Count 4.41 M/UL (4.70-6.10) 4.21 M/UL (4.70-6.10) Hemoglobin 12.0 G/DL (14.2-18.0) 11.4 G/DL (14.2-18.0) Hematocrit 36.9 % (42.0-52.0) 35.5 % (42.0-52.0) Mean Corpuscular Volume 84 FL (80-99) 84 FL (80-99) Mean Corpuscular Hemoglobin 27.1 PG (27.0-31.0) 27.1 PG (27.0-31.0) Mean Corpuscular Hemoglobin Concent 32.4 G/DL (32.0-36.0) 32.2 G/DL (32.0-36.0) Red Cell Distribution Width 14.2 % (11.6-14.8) 14.5 % (11.6-14.8) Platelet Count 274 K/UL (150-450) 239 K/UL (150-450) Mean Platelet Volume 5.8 FL (6.5-10.1) 5.7 FL (6.5-10.1) Neutrophils (%) (Auto) 80.6 % (45.0-75.0) 60.5 % (45.0-75.0) Lymphocytes (%) (Auto) 12.9 % (20.0-45.0) 25.7 % (20.0-45.0) Monocytes (%) (Auto) 6.1 % (1.0-10.0) 11.1 % (1.0-10.0) Eosinophils (%) (Auto) 0.1 % (0.0-3.0) 1.8 % (0.0-3.0) Basophils (%) (Auto) 0.4 % (0.0-2.0) 0.9 % (0.0-2.0) Sodium Level 138 MMOL/L (136-145) Potassium Level 3.8 MMOL/L (3.5-5.1) Chloride Level 100 MMOL/L (98-107) Carbon Dioxide Level 33 MMOL/L (21-32) Anion Gap 5 mmol/L (5-15) Blood Urea Nitrogen 14 mg/dL (7-18) Creatinine 0.9 MG/DL (0.55-1.30) Estimat Glomerular Filtration Rate > 60 mL/min (>60) Glucose Level 123 MG/DL (74-106) Calcium Level 8.7 MG/DL (8.5-10.1) Prothrombin Time 11.7 SEC (9.30-11.50) Prothromb Time International Ratio 1.1 (0.9-1.1) Height (Feet): 5 Height (Inches): 8.00 Weight (Pounds): 269 Objective Physical Exam Vitals: reviewed, normal General: no apparent distress, alert, GCS 15, non-toxic, obese HEENT: hearing grossly normal, normal pharynx, no angioedema, normal voice Neck: full range of motion, supple/symm/no masses Respiratory: chest non-tender, lungs clear, normal breath sounds, speaking full sentences Cardiovascular: regular rate, rhythm, no edema Gi: normal bowel sounds, non tender, soft, non-distended, no guarding, no rebound Rectal: deferred Genitourinary: normal inspection, no CVA tenderness Neurologic: alert, motor strength/tone normal Ext: Healing cellulitis to the left lower extremity Lymphatic: no adenopathy Nayan Benavidez MD Jan 06, 2021 06:33
[2021-01-06 06:41] LABS: ANION GAP 5 mmol/L (5-15); BLOOD UREA NITROGEN 18 mg/dL (7-18); CALCIUM 8.9 MG/DL (8.5-10.1); CARBON DIOXIDE 33 MMOL/L (21-32); CHLORIDE 104 MMOL/L (98-107); CREATININE 0.9 MG/DL (0.55-1.30); POTASSIUM 4.4 MMOL/L (3.5-5.1); SODIUM 142 MMOL/L (136-145)
--- NOTE | 2021-01-06 07:30 | NUR ---
NURSE NOTES: Patient alert x4; on room air, no sign of shortness of breath; IV Left-Hand D51/2NS 100cc; wound dressing on Right Lower extremity changed this morning, dressing dry and intact; side rails up x2, breaks engaged, bed at lowest position; Urinal within reach; will keep monitoring.
[2021-01-06 08:00] VITALS: BP 118/61
[2021-01-06] MEDS: OLANZapine 10mg tab ORAL SCH (08:24)
[2021-01-06] MEDS: Carvedilol 6.25mg Tab ORAL SCH (08:25)
[2021-01-06] MEDS: DULoxetine 30mg cap ORAL SCH (08:25)
[2021-01-06] MEDS: Xarelto 10mg tab ORAL SCH (08:25)
[2021-01-06] MEDS: Irbesartan 150mg tablet ORAL SCH (08:26)
--- NOTE | 2021-01-06 08:38 | Infectious Diseases Prog Note ---
Assessment/Plan 65 yo male cristiano PMHx of Obesity, HTN, HLD, OA and psych disorder who presented to the ED on 01/02/21 with b/l foot erythema and swelling. Cellulitis with blisters R/L Wound Cx 01/02/21 - S. aureus, Providencia Afebrile No leukocytosis Obesity HTN HLD OA PLAN Unfortunately there are no PO options for the providencia bacteria in his leg wounds - Continue Vancomycin Per pharmacy #2 (End date 01/15/21) - Start Cefepime 1g Q8hr #2 (End date 01/15/21) - One d/c could switch patient to Ertapenem 1g Qday if this covered by his insurance as it is easier to dose. Ok to D/C from an ID perspective - f/u Cultures - Monitor cellulitis - Elevation of feet and wound care - Monitor CBC and Temps Thank you for this consult. [facility] will continue to follow Mr. Gracia with you during this hospitalization. Subjective Allergies: Coded Allergies: Dust (Verified Allergy, Severe, Severe coughing, 01/02/21) GRASS POLLEN (Verified Allergy, Severe, Severe coughing, 01/02/21) GARCIA (Verified Allergy, Intermediate, Coughing, 01/02/21) Anything garden related TREE AND SHRUB POLLEN (Verified Allergy, Intermediate, Coughing, 01/02/21) Severe coughing Afebrile Reports feeling well No Leukocytosis LARA Objective Last 24 Hour Vital Signs Date Time Temp Pulse Resp B/P (MAP) Pulse Ox O2 Delivery O2 Flow Rate FiO2 01/06/21 08:26 118/61 01/06/21 08:25 79 118/61 01/06/21 08:25 79 118/61 01/06/21 08:00 98.6 79 18 118/61 (80) 97 01/06/21 06:15 96.8 01/06/21 04:00 96.8 66 20 134/61 (85) 95 01/06/21 00:00 97.8 64 20 123/56 (78) 98 01/05/21 21:28 Room Air 01/05/21 21:01 97.8 01/05/21 20:15 90 121/73 01/05/21 20:00 98.1 69 20 131/57 (81) 93 01/05/21 17:21 97.8 01/05/21 16:00 97.8 65 20 145/66 (92) 92 01/05/21 12:00 98.0 70 20 143/63 (89) 93 01/05/21 11:31 97.9 01/05/21 09:00 Room Air 01/05/21 08:48 78 121/61 01/05/21 08:47 121/61 01/05/21 08:47 78 121/61 Height (Feet): 5 Height (Inches): 8.00 Weight (Pounds): 269 GEN: NAD HEENT: NCAT, MMM, EOMI Neck: Supple, Normal ROM LUNGS: CTAB, No W/C Heart: RRR, S1, S2 Abd: Obese, Soft, NT, + BS Neuro: A/O x 4 Ext Left leg edema resolved, Right leg still with edema and erythema and some blistering/ulcerations of lower Ext, There is an exudate from the ulcers but overal improved Laboratory Tests Test 01/06/21 05:45 White Blood Count 7.7 K/UL (4.8-10.8) Red Blood Count 4.49 M/UL (4.70-6.10) L Hemoglobin 12.2 G/DL (14.2-18.0) L Hematocrit 37.5 % (42.0-52.0) L Mean Corpuscular Volume 84 FL (80-99) Mean Corpuscular Hemoglobin 27.2 PG (27.0-31.0) Mean Corpuscular Hemoglobin Concent 32.6 G/DL (32.0-36.0) Red Cell Distribution Width 13.9 % (11.6-14.8) Platelet Count 248 K/UL (150-450) Mean Platelet Volume 5.4 FL (6.5-10.1) L Neutrophils (%) (Auto) 68.9 % (45.0-75.0) Lymphocytes (%) (Auto) 18.2 % (20.0-45.0) L Monocytes (%) (Auto) 9.8 % (1.0-10.0) Eosinophils (%) (Auto) 1.7 % (0.0-3.0) Basophils (%) (Auto) 1.5 % (0.0-2.0) Sodium Level 142 MMOL/L (136-145) Potassium Level 4.4 MMOL/L (3.5-5.1) Chloride Level 104 MMOL/L (98-107) Carbon Dioxide Level 33 MMOL/L (21-32) H Anion Gap 5 mmol/L (5-15) Blood Urea Nitrogen 18 mg/dL (7-18) Creatinine 0.9 MG/DL (0.55-1.30) Estimat Glomerular Filtration Rate > 60 mL/min (>60) Glucose Level 95 MG/DL (74-106) Calcium Level 8.9 MG/DL (8.5-10.1) Current Medications Medications (Trade) Dose Ordered Sig/Graciela Route PRN Reason Start Time Stop Time Status Last Admin Dose Admin Acetaminophen (Tylenol) 650 mg Q4H PRN ORAL For Pain 01/02/21 16:30 02/01/21 16:29 01/02/21 20:36 Acetaminophen/ Hydrocodone Bitart (River 5/325) 1 tab Q8H PRN ORAL for moderate pain 01/03/21 19:00 01/10/21 18:59 01/05/21 16:51 Amlodipine Besylate (Norvasc) 5 mg DAILY ORAL 01/03/21 09:00 02/02/21 08:59 01/06/21 08:25 Carvedilol (Coreg) 6.25 mg EVERY 12 HOURS ORAL 01/03/21 21:00 02/02/21 20:59 01/06/21 08:25 Cefepime HCl 1 gm/ Dextrose 55 ml @ 110 mls/hr EVERY 8 HOURS IVPB 01/05/21 14:00 01/12/21 13:59 01/06/21 05:49 Clonidine HCl (Catapres Tab) 0.1 mg Q8HR PRN ORAL SBP>160 01/03/21 19:00 04/03/21 18:59 Dextrose/Sodium Chloride 1,000 ml @ 100 mls/hr Q10H IV 01/03/21 20:00 02/02/21 19:59 01/06/21 01:35 Diphenhydramine HCl (Benadryl) 25 mg Q8HR PRN ORAL Itching 01/03/21 19:00 02/02/21 18:59 Divalproex Sodium (Depakote) 250 mg BEDTIME ORAL 01/03/21 21:00 02/02/21 20:59 01/05/21 20:14 Duloxetine HCl (Cymbalta) 30 mg DAILY ORAL 01/04/21 11:00 04/04/21 10:59 01/06/21 08:25 Famotidine (Pepcid) 20 mg DAILY ORAL 01/04/21 09:00 04/04/21 08:59 01/06/21 08:25 Irbesartan (Avapro) 75 mg DAILY ORAL 01/04/21 09:00 02/03/21 08:59 01/06/21 08:26 Levetiracetam (Keppra) 500 mg Q12HR ORAL 01/03/21 21:00 02/02/21 20:59 01/06/21 08:25 Morphine Sulfate (MS Contin) 15 mg Q8H PRN ORAL for severe pain 01/03/21 20:00 01/10/21 19:59 01/06/21 05:45 Multivitamins (Multivitamins) 1 tab DAILY ORAL 01/04/21 09:00 02/03/21 08:59 01/06/21 08:26 Olanzapine (ZyPREXA) 10 mg DAILY ORAL 01/03/21 09:00 02/17/21 08:59 01/06/21 08:24 Ondansetron HCl (Zofran) 4 mg Q4H PRN IVP Nausea & Vomiting 01/03/21 19:00 02/02/21 18:59 01/04/21 05:38 Pantoprazole (Protonix) 40 mg DAILY ORAL 01/06/21 09:00 02/05/21 08:59 01/06/21 08:25 Rivaroxaban (Xarelto) 20 mg DAILY ORAL 01/03/21 09:00 04/03/21 08:59 01/06/21 08:25 Tamsulosin HCl (Flomax) 0.4 mg BEDTIME ORAL 01/03/21 21:00 02/02/21 20:59 01/05/21 20:14 Vancomycin HCl (Vanco pharmacy to dose) 1 ea DAILY PRN MISC rx protocol 01/05/21 13:30 02/04/21 13:29 Vancomycin HCl 1 gm/Dextrose 275 ml @ 183.708 mls/hr Q12H IVPB 01/06/21 03:00 01/11/21 02:59 01/06/21 02:53 Sonny Carrasco MD Jan 06, 2021 08:38
--- NOTE | 2021-01-06 10:51 | Surgery Progress Note ---
Surgery Progress Note Subjective Symptoms: improved, tolerating diet, voiding well, passing flatus, BM, pain decreased Objective Last 24 Hour Vital Signs Date Time Temp Pulse Resp B/P (MAP) Pulse Ox O2 Delivery O2 Flow Rate FiO2 01/06/21 09:00 Room Air 01/06/21 08:26 118/61 01/06/21 08:25 79 118/61 01/06/21 08:25 79 118/61 01/06/21 08:00 98.6 79 18 118/61 (80) 97 01/06/21 06:15 96.8 01/06/21 04:00 96.8 66 20 134/61 (85) 95 01/06/21 00:00 97.8 64 20 123/56 (78) 98 01/05/21 21:28 Room Air 01/05/21 21:01 97.8 01/05/21 20:15 90 121/73 01/05/21 20:00 98.1 69 20 131/57 (81) 93 01/05/21 17:21 97.8 01/05/21 16:00 97.8 65 20 145/66 (92) 92 01/05/21 12:00 98.0 70 20 143/63 (89) 93 01/05/21 11:31 97.9 I&O Intake and Output 01/05/21 01/06/21 19:00 07:00 Intake Total 2837.416 ml 1335 ml Output Total 400 ml 600 ml Balance 2437.416 ml 735 ml Intake Oral 1560 ml 480 ml IV Total 1277.416 ml 855 ml Output Urine Total 400 ml 600 ml # Voids 2 Dressing: dry Wound: clean Cardiovascular: RSR Respiratory: clear Abdomen: soft, flat, non-tender, present bowel sounds, non-distended Extremities: no edema, no tenderness, no cyanosis Laboratory Tests Test 01/06/21 05:45 White Blood Count 7.7 K/UL (4.8-10.8) Red Blood Count 4.49 M/UL (4.70-6.10) L Hemoglobin 12.2 G/DL (14.2-18.0) L Hematocrit 37.5 % (42.0-52.0) L Mean Corpuscular Volume 84 FL (80-99) Mean Corpuscular Hemoglobin 27.2 PG (27.0-31.0) Mean Corpuscular Hemoglobin Concent 32.6 G/DL (32.0-36.0) Red Cell Distribution Width 13.9 % (11.6-14.8) Platelet Count 248 K/UL (150-450) Mean Platelet Volume 5.4 FL (6.5-10.1) L Neutrophils (%) (Auto) 68.9 % (45.0-75.0) Lymphocytes (%) (Auto) 18.2 % (20.0-45.0) L Monocytes (%) (Auto) 9.8 % (1.0-10.0) Eosinophils (%) (Auto) 1.7 % (0.0-3.0) Basophils (%) (Auto) 1.5 % (0.0-2.0) Sodium Level 142 MMOL/L (136-145) Potassium Level 4.4 MMOL/L (3.5-5.1) Chloride Level 104 MMOL/L (98-107) Carbon Dioxide Level 33 MMOL/L (21-32) H Anion Gap 5 mmol/L (5-15) Blood Urea Nitrogen 18 mg/dL (7-18) Creatinine 0.9 MG/DL (0.55-1.30) Estimat Glomerular Filtration Rate > 60 mL/min (>60) Glucose Level 95 MG/DL (74-106) Calcium Level 8.9 MG/DL (8.5-10.1) Plan Problems: (1) Cellulitis of right lower extremity Assessment & Plan: Pt presented on admission with Edema, Multiple Ulcerations R lower extremity. R Lower extremity is warm, erythematous with presence of Haemosiderin. Pt stated he has Hx. of recurrent Leg ulcerations. Wound zia R Tibia(L)0.8cm x (W)4.5cm. Fibrinous slough at base of wound. Borders are irregular and macerated. Weeping seropurulent exudate . Mild odor noted. Two wounds lateral RLE (L)5cm x (W)7.3cm. (Proximal)Superficial wound with 50% fibrinous slough,50% kenna. Borders are irregular and macerated. Exuding seropurulent exudate. Mild odor noted. (Distally) Lateral/posterior R Tibia (L)6.5cm x (W)7.4cm. Superficial wound with 90% fibrinous slough,10% kenna.Irregular borders that are macerated. Exuding moderate amt malodorous seropurulent exudate. Posterior R Tibia(L)1.2cm x (W)3.6cm. Superficial wound with 50% fibrinous slough,50% kenna. Irregular and macerated borders.Small amt seropurulent exudate. Mild odor noted. Small black nodule noted to posterior upper R thigh. No erythema or changes in skin temp at site. Pt stated he has had nodule for many years. Denied pain at site. Haemosiderin noted to LLE . No edema or ulcerations noted. Both heels are blanchable and firm. Tx.plan: Cleanse wounds R lower extremity with Saline. Apply Silvasorb Gel to each wound. Cover wounds with Maxsorb Extra (calcium Alginate). Cover wounds with ABD Pads. Wrap with Kerlix From Base of Toes to Below Knee. Change Daily and prn. Elevate leg with Pillow. IV ABx diet as tolerated feels better today dressings going well On the right, waveforms are biphasic at the common femoral and superficial femoral artery levels. Forms are monophasic but with sharp systolic upstrokes at the popliteal artery level. The tibial arteries could not be accessed due to the presence of bandages On the left, triphasic waveforms are seen at the common femoral, superficial femoral, popliteal artery levels, and biphasic waveforms are seen in the tibial arteries. A focal flow velocity elevation is seen in the left at the posterior tibial artery level proximally. Impression: Incomplete evaluation of the right leg. Evidence of mild suprageniculate stenosis, but the tibial vessels could not be evaluated No evidence of significant arterial insufficiency on the left. Note, however, evidence of a significant stenosis in the posterior tibial artery proximally chandrakant fay uop consider d/c Papi Mendieta Jan 06, 2021 10:51
[2021-01-06] MEDS: HYDROcodone/Acetamin 5/325 tab ORAL PRN (11:20)
[2021-01-06 12:00] VITALS: BP 117/69
--- NOTE | 2021-01-06 14:55 | NUR ---
*-*DISCHARGE PLANNING*-* PATIENT HAS BEEN ACCEPTED BACK TO: [facility] P: [phone] ROOM# 6.B
--- NOTE | 2021-01-06 15:55 | NUR ---
*-*DISCHARGE PLANNED*-* PATIENT HAS BEEN ACCEPTED AND WILL BE DISCHARGED BACK TO: [facility] P: [phone] FOR NURSE TO NURSE REPORT ROOM# 6.B [facility] TRANSPORTATION SET FOR 5:45PM S/W ELAINE [id number]
[2021-01-06 16:00] VITALS: BP 121/68
[2021-01-06] MEDS ORDERED: CEFEPIME-D1 GM/50 ML IVPB ×3 (16:19→16:28)
[2021-01-06] MEDS ORDERED: VANCOMYCIN500 MG/100 IV (16:25)
[2021-01-06] MEDS ORDERED: CEFEPIME HCL1 GM IVPB (16:26)
--- NOTE | 2021-01-06 18:48 | NUR ---
NURSE NOTES: Patient discharged to [facility]. Telephone report given to YVETTE Aguilar; IV line kept patient going to continue IV antibiotics Vancomycin and Cefepine at the SNF; wound dressing on Right Lower extremity dry and intact; patient stable upon discharge; printed package given to [facility] personnel;
--- NOTE | 2021-01-06 18:52 | NUR ---
NURSE NOTES: Patient's belonging counted and signed by patient and primary nurse;
--- NOTE | 2021-01-09 15:45 | Discharge Summary ---
Discharge Summary Discharge Summary _ Date of admission: 01/02/2021 Date of discharge: 01/06/[address] Corral History of Present Illness and Brief Hospital Course Mr. Gracia is a 65-year-old male with past medical history of hypertension, schizophrenia, and depression, who was sent to ED from SNF for evaluation of bilateral lower extremity cellulitis. Initial laboratory studies were remarkable for no leukocytosis, stable H&H, and no electrolyte abnormalities. Chest x-ray showed no acute cardiopulmonary process. Patient was given antibiotics and IV fluids. Patient was admitted to the hospital for further management. Patient presented on admission with multiple recurrent leg ulcerations. Wound care was in place. The wound culture showed growth of Providencia stuartii, and Staphylococcus aureus. Blood cultures were negative for growth. Patient was continued on antibiotics. Patient remained afebrile without leukocytosis throughout hospitalization. Patient was medically stable for discharge and was discharged back to his facility on antibiotics. Consultants: Infectious disease Dr. Carrasco Hematology oncology Dr. Benavidez Surgery Dr. Tom Discharge Condition Stable Discharge Activity As tolerated Discharge Diet Regular Final diagnoses Hypercoagulable disorder Anemia Cellulitis of the legs Hyperglycemia I have been assigned to dictate discharge summary for this account. I was not involved in the patient's management Lalito Gallo Jan 09, 2021 15:45
== END 2021-01-06 18:55 | DRG 603 ==
LOC: EDBD 10:59 → EMR 12:00 → 4E 12:25 → EDBEDREQ 14:57 → 4E 20:27
DX: L03.115 Cellulitis of right lower limb (principal); Z68.41 Body mass index [BMI] 40.0-44.9, adult; D68.9 Coagulation defect, unspecified; L03.116 Cellulitis of left lower limb; B96.89 Other specified bacterial agents as the cause of diseases classified elsewhere; B95.61 Methicillin susceptible Staphylococcus aureus infection as the cause of diseases classified elsewhere; I10 Essential (primary) hypertension; E66.01 Morbid (severe) obesity due to excess calories; Z79.01 Long term (current) use of anticoagulants; L30.9 Dermatitis, unspecified; M19.90 Unspecified osteoarthritis, unspecified site; E78.5 Hyperlipidemia, unspecified; F99 Mental disorder, not otherwise specified; D64.9 Anemia, unspecified
CPT/HCPCS: 36415; 71045; 80048; 80053; 83605; 85025; 85610; 87040; 87070; 87081; 87181; 87205; 93925; 93970; 96361; 96365; 96375; 99285; J2405; J7030